=== PATIENT | male | born 1970 | race Caucasian/White ===

== ENCOUNTER 2018-01-24 07:47 | Emergency (ER) | payer SELFPAY ==
[~2018-01-24] VITALS: Ht 177.8 cm; Wt 95.3 kg
[2018-01-24] MEDS ORDERED: AMLODIPINE BESYLATE 10 MG TAB PO ONE (08:30)
[2018-01-24] MEDS ORDERED: LISINOPRIL 20 MG TAB PO ONE (08:30)
[2018-01-24 08:47] LABS: BASOPHILS # (AUTO) 0.1 (0.0-0.1); BASOPHILS % 1.1 % (0.0-1.0); EOSINOPHILS # (AUTO) 0.5 (0.0-0.4); EOSINOPHILS % 4.3 % (0.0-6.0); HEMATOCRIT 48.3 % (38.2-49.6); HEMOGLOBIN 16.7 g/dL (14.0-18.0); LYMPHOCYTES # (AUTO) 3.4 (1.0-3.2); LYMPHOCYTES % 31.1 % (18.0-39.1); MEAN CORPUSCULAR HEMOGLOBIN 31.3 pg (28-32); MEAN CORPUSCULAR HGB CONC 34.6 g/dL (31-35); MEAN CORPUSCULAR VOLUME 90.4 fL (81-99); MONOCYTES # (AUTO) 0.6 (0.2-0.8); MONOCYTES % 5.7 % (4.4-11.3); NEUTROPHILS # (AUTO) 6.2 (2.1-6.9); NEUTROPHILS % 57.4 % (38.7-80.0); PLATELET COUNT 301 x10e3/uL (140-360); RED BLOOD COUNT 5.34 x10e6/uL (4.3-5.7); RED CELL DISTRIBUTION WIDTH 13.1 % (11.7-14.4)
[2018-01-24 09:03] LABS: ALBUMIN 4.2 g/dL (3.5-5.0); ALBUMIN/GLOBULIN RATIO 1.2 (0.8-2.0); ANION GAP 15.4 mmol/L (8-16); CALCIUM 10.3 mg/dL (8.4-10.2); CREATININE, SERUM 1.33 mg/dL (0.72-1.25); POTASSIUM 4.4 mmol/L (3.5-5.1)
--- NOTE | 2018-01-24 09:05 | Diagnostic Imaging Report ---
EXAMINATION: Head CT HISTORY: Headaches, hypertension COMPARISON: None. TECHNIQUE: Multidetector axial images were obtained without contrast from the foramen magnum to the vertex . The images were reconstructed using brain and bone algorithms. Thin section brain images were reformatted into coronal and sagittal planes. Image quality: Motion/streaking artifact limits the evaluation of the skull base and posterior cranial fossa. Dose modulation, iterative reconstruction, and/or weight based adjustment of the mA/kV was utilized to reduce the radiation dose to as low as reasonably achievable. FINDINGS: Parenchyma: 1. No abnormal densities. 2. No mass or hemorrhage. No CT evidence of acute territorial vascular insult. Extra-axial spaces:No abnormal density. No extra-axial fluid collections Brain volume: Mild generalized brain volume loss. Ventricles: No hydrocephalus or displacement. Arteries: No density suggestive of thrombus. Dural sinuses: No abnormal density. Extra-axial spaces: No abnormal density. Foramen magnum: No mass, Chiari malformation, or basilar invagination. Sella: No obvious mass. Paranasal/mastoid sinuses: Imaged portions unremarkable. Skull/Scalp: No lytic or blastic lesions. No fractures. IMPRESSION: No intracranial abnormalities, particularly no hemorrhage. Signed by: Dr. Jessica Chambers M.D. on 01/24/2018 9:00 AM
[2018-01-24] MEDS ORDERED: SODIUM CHLORIDE 0.9% 1000ML 1,000 ML ONE (10:23)
[2018-01-24] MEDS ORDERED: SODIUM CHLORIDE 0.9% 1000ML 1,000 ML IV SCH (10:30)
[2018-01-24] MEDS ORDERED: HYDRALAZINE HCL 20 MG/ML VIAL IV ONE (12:30)
[2018-01-24 12:31] VITALS: BP 153/101
== END 2018-01-24 12:40 | disposition home or self-care (01) ==
LOC: ER 07:47
DX: R51 Headache (principal); I10 Essential (primary) hypertension; Z87.891 Personal history of nicotine dependence
CPT/HCPCS: 36415; 70450; 80053; 85025; 99284; J0360; J7030

== ENCOUNTER 2018-03-27 18:44 | Inpatient (IN) | payer SELFPAY ==
[~2018-03-27] VITALS: Ht 177.8 cm; Wt 109.0 kg
[2018-03-27] VITALS (14 sets, daily range): BP systolic 92–115; BP diastolic 61–86
--- OUTSIDE RECORDS SUMMARY | 2018-03-27 18:46 | XMS REPORT ---
Author Author [facility] Address Unknown Phone Unavailable Care Team Providers Care Sr. Media Manager Name Role Phone Desean GAO Unavailable Unavailable Problems This patient has no known problems. Allergies, Adverse Reactions, Alerts This patient has no known allergies or adverse reactions. Medications This patient has no known medications. Results Test Description Test Time Test Comments Text Results Atomic Results Result Comments CT BRAIN WO 2018-01-24 08:55:00 [facility] [address] [place], [place] [address] Patient Name: PRABHAKAR MOSQUERA II MR #: [id number] : 1970 Age/Sex: 48/M Req #: [id number] Adm Physician: Ordered by: MITZY HZU RELIEF OPERATOR Report #: [id number] Location: ER Room/Bed: Procedure: [id number] CT/CT BRAIN WO Exam Date: 01/24/18 Exam Time: 0830 REPORT STATUS: Signed EXAMINATION: Head CT HISTORY: Headaches, hypertension COMPARISON: None. TECHNIQUE: Multidetector axial images were obtained without contrast from the foramen magnum to the vertex . The images were reconstructed using brain and bone algorithms. Thin section brain images were reformatted into coronal and sagittal planes. Image quality: Motion/streaking artifact limits the evaluation of the skull base and posterior cranial fossa. Dose modulation, iterative reconstruction, and/or weight based adjustment of the mA/kV was utilized to reduce the radiation dose to as low as reasonably achievable. FINDINGS: Parenchyma: 1. No abnormal densities. 2. No mass or hemorrhage. No CT evidence of acute territorial vascular insult. Extra-axial spaces:No abnormal density. No ex tra-axial fluid collections Brain volume: Mild generalized brain volume loss. Ventricles: No hydrocephalus or displacement. Arteries: No density suggestive of thrombus. Dural sinuses: No abnormal density. Extra-axial spaces: No abnormal density. Foramen magnum: No mass, Chiari malformation, or basilar invagination. Sella: No obvious mass. Paranasal/mastoid sinuses: Imaged portions unremarkable. Skull/Scalp: No lytic or blastic lesions. No fractures. IMPRESSION: No intracranial abnormalities, particularly no hemorrhage. Signed by: Dr. Bright Chambers M.D. on 01/24/2018 9:00 AM Dictated By: BRIGHT CHAMBERS MD 9 Transcribed By: DAPHNEY on 01/24/18899 COPY TO: MITZY ZHU NP
--- OUTSIDE RECORDS SUMMARY | 2018-03-27 18:46 | XMS REPORT | Summary of Care ---
Author Author KARIN MILLIGAN M.D. Organization Unknown Address [facility] Phone Unavailable Care Team Providers Care Personal Development Mentor Name Role Phone KARIN MILLIGAN M.D. Unavailable Unavailable Unavailable Unavailable Functional Status Name Dates Details Functional status health issues are not documented Status: Name Dates Details Cognitive status health issues are not documented Status: Problems Name Dates Details Lumbar back sprain, initial encounter (847.2, S33.5XXA) Status: Active Medications Name Dates Details MethylPREDNISolone 4 MG Oral Tablet Therapy Pack USE DIRECTED Quantity: 1 CUPZHEN Gonzales, KARIN * Start : 11-Mar-2018 Active 21 Tablet Pack Sulindac 200 MG Oral Tablet TAKE ONE TABLET BY MOUTH TWICE DAILY AFTER A MEAL AFTER MEDROL * Quantity: 60 Refills: 3 CHEL Vidal., KARIN * Start : 11-Mar-2018 Active Cyclobenzaprine HCl - 10 MG Oral Tablet TAKE 1 TABLET AT BEDTIME NEEDED. * Quantity: 30 Refills: 3 CUPZHEN Mathews.D., KARIN * Start : 11-Mar-2018 Active Allergies and Adverse Reactions Name Dates Details Allergy history not documented Status: Procedures Procedure Dates Details Physical Therapy Date: 11-Mar-2018 MRI Spine lumbar wo contrast 55028 Date: 11-Mar-2018 Immunization Name Dates Details Immunizations not documented Social History Name Dates Details Unknown if ever smoked Vital Signs Date Test Result Details No Known Vitals to report Results Date Description Value Details Results not documented Plan of Care Name Dates Details Planned Observations Planned Goals not documented Planned Encounters Appointment; KARIN MILLIGAN M.D. On: 20-Apr-2018 9:15 Interventions Provided Medication Changes* Cyclobenzaprine HCl - 10 MG Oral Tablet - Start * MethylPREDNISolone 4 MG Oral Tablet Therapy Pack - Start * Sulindac 200 MG Oral Tablet - Start Labs/Procedures/Imaging* MRI Spine lumbar wo contrast 24420; To Be Done: 11 Mar 2018 * Physical Therapy; To Be Done: 11 Mar 2018 Instructions Name Dates Details Instructions not documented Encounters Appointment; KARIN MILLIGAN M.D. Encounter Diagnosis: Problem not documented On: 11-Mar-2018 10:00
[2018-03-27] MEDS ORDERED: ASPIRIN 81 MG CHEW TAB ONE (18:49)
[2018-03-27] MEDS ORDERED: MORPHINE SULFATE INJ 4 MG/ML INJ ONE (18:50)
[2018-03-27] MEDS ORDERED: ONDANSETRON HCL INJ 2 MG/ML VIAL ONE (18:50)
[2018-03-27] MEDS ORDERED: NITROGLYCERIN 2% OINT 1 GM PKT ONE ×2 (18:50→19:03)
[2018-03-27] MEDS: MORPHINE SULFATE INJ 4 MG/ML INJ IV PRN (18:52)
[2018-03-27] MEDS ORDERED: ONDANSETRON HCL INJ 2 MG/ML VIAL IV STA (18:56)
[2018-03-27] MEDS ORDERED: LABETALOL HCL 20 ML ONE (18:59)
[2018-03-27] MEDS ORDERED: METOPROLOL TARTRATE INJ 1 MG/ML VIAL ONE (19:01)
[2018-03-27] MEDS ORDERED: HYDROMORPHONE 1MG/1ML INJ IV STA (19:01)
[2018-03-27] MEDS ORDERED: SODIUM CHLORIDE 0.9% 1000ML 1,000 ML ONE ×2 (19:04→19:28)
[2018-03-27] MEDS ORDERED: HYDROMORPHONE 2MG/ML 2 MG/ML ML ONE (19:05)
[2018-03-27] MEDS ORDERED: SODIUM CHLORIDE 0.9% 1000ML 1,000 ML IV ONE (19:15)
[2018-03-27] MEDS ORDERED: METOPROLOL TARTRATE INJ 1 MG/ML VIAL IV ONE ×3 (19:15→19:30)
[2018-03-27] MEDS ORDERED: ASPIRIN 81 MG CHEW TAB PO ONE ×2 (19:15→19:30)
[2018-03-27] MEDS ORDERED: NITROGLYCERIN 2% OINT 1 GM PKT TOP ONE (19:15)
[2018-03-27] MEDS ORDERED: HYDROMORPHONE 2MG/ML 2 MG/ML ML IV STA (19:16)
[2018-03-27] MEDS ORDERED: LIDOCAINE HCL 2% LOCAL 20 ML VIAL ONE (19:26)
[2018-03-27] MEDS ORDERED: HEPARIN SOD (PORCINE) 1000 UNIT/ML 30ML ONE (19:26)
[2018-03-27] MEDS ORDERED: NITROGLYCERIN/D5W 200 MCG/ML 250 ML ONE (19:26)
[2018-03-27] MEDS ORDERED: BIVALRIUDIN 250 MG/VIAL VIAL IV ONE (19:27)
[2018-03-27] MEDS ORDERED: FENTANYL CITRATE/PF 100MCG/2 ML INJ ONE (19:27)
[2018-03-27] MEDS ORDERED: MIDAZOLAM HCL 2 MG/2 ML VIAL ONE (19:27)
[2018-03-27] MEDS ORDERED: SODIUM CHLORIDE 0.9% 50ML 0 ML ONE (19:28)
[2018-03-27] MEDS ORDERED: HEPARIN SOD/SOD CHLORIDE 2,000 ML ONE (19:28)
[2018-03-27] MEDS ORDERED: TICAGRELOR 90 MG TABLET PO ONE (19:30)
[2018-03-27] MEDS ORDERED: HYDROMORPHONE 2MG/ML 2 MG/ML ML IV ONE (19:30)
[2018-03-27] MEDS ORDERED: ATROPINE SULFATE 0.1 MG/ML 10ML SYR ONE (20:01)
[2018-03-27] MEDS ORDERED: IOPAMIDOL 370 MG/ML 200 ML INFUS..BTL INJ ONE (20:17)
[2018-03-27] MEDS ORDERED: EPTIFIBATIDE 20 ML ONE (20:19)
[2018-03-27] MEDS ORDERED: EPTIFIBATIDE 100 ML ONE (20:19)
[2018-03-27 20:38] LABS: BASOPHILS # (AUTO) 0.2 (0.0-0.1); BASOPHILS % 0.7 % (0.0-1.0); EOSINOPHILS # (AUTO) 0.4 (0.0-0.4); EOSINOPHILS % 1.9 % (0.0-6.0); HEMATOCRIT 46.2 % (38.2-49.6); HEMOGLOBIN 15.6 g/dL (14.0-18.0); LYMPHOCYTES # (AUTO) 6.5 (1.0-3.2); LYMPHOCYTES % 31.7 % (18.0-39.1); MEAN CORPUSCULAR HGB CONC 33.8 g/dL (31-35); MEAN CORPUSCULAR VOLUME 91.7 fL (81-99); MONOCYTES # (AUTO) 1.3 (0.2-0.8); MONOCYTES % 6.3 % (4.4-11.3); NEUTROPHILS % 58.8 % (38.7-80.0); PLATELET COUNT 410 x10e3/uL (140-360); RED BLOOD COUNT 5.04 x10e6/uL (4.3-5.7)
[2018-03-27 20:44] LABS: INR 0.8; PROTHROMBIN TIME 11.9 seconds (11.9-14.5)
[2018-03-27 20:50] LABS: ALANINE AMINOTRANSFERASE 30 IU/L (0-55); ALBUMIN 4.1 g/dL (3.5-5.0); ALBUMIN/GLOBULIN RATIO 1.2 (0.8-2.0); ALKALINE PHOSPHATASE 62 IU/L (40-150); ANION GAP 19.6 mmol/L (8-16); BLOOD UREA NITROGEN 12 mg/dL (7-26); BUN/CREATININE RATIO 10 (6-25); CARBON DIOXIDE 21 mmol/L (22-29); CHLORIDE 101 mmol/L (98-107); CREATINE KINASE 152 IU/L (30-200); CREATININE, SERUM 1.15 mg/dL (0.72-1.25); EST GLOMERULAR FILTRATION RATE > 60 ML/MIN (60-); GLUCOSE 122 mg/dL (74-118); POTASSIUM 3.6 mmol/L (3.5-5.1); SODIUM 138 mmol/L (136-145)
[2018-03-27 22:25] LABS: EOSINOPHILS % (MANUAL) 3 % (0-7); LYMPHOCYTES % (MANUAL) 22 % (19-48); MONOCYTES % (MANUAL) 6 % (3.4-9.0); NEUTROPHILS % (MANUAL) 68 % (40-74)
[2018-03-27 22:26] LABS: RBC MORPHOLOGY COMMENT NORMAL
[2018-03-27 22:27] LABS: PLATELET ESTIMATE ADEQUATE; PLATELET MORPHOLOGY COMMENT FEW LARGE
[2018-03-28] VITALS (66 sets, daily range): BP systolic 85–155; BP diastolic 43–108
--- NOTE | 2018-03-28 00:23 | Operative Report ---
DATE OF PROCEDURE: March 27, 2018 CARDIAC CATHETERIZATION REPORT INDICATION FOR PROCEDURE: ST-elevation [place]. PREPROCEDURE ASSESSMENT: Patient's medical records, laboratory findings, prior experiences with anesthesia, social history, and family history were reviewed prior to the procedure. Patient was deemed to be an appropriate candidate for moderate sedation. The risks, the benefits, and alternatives of the procedure were explained to the patient and informed consent was obtained prior to the procedure. MEDICATIONS: Administered. Please see nursing notes for medications administered during the procedure. PROCEDURES PERFORMED: 1. Coronary angiography. 2. Left heart catheterization. 3. Thrombectomy of right coronary artery. 4. PCI to RCA with drug-eluting stent x1. PROCEDURAL DETAILS: Patient was brought to the cardiac catheterization laboratory in an emergent fashion. Patient was prepped and draped in a sterile fashion. Access to the right common femoral artery was obtained using ultrasound guidance with micropuncture needle. Coronary angiography was performed using a JR4 guide catheter, 6-Turkish and JL4 diagnostic preformed catheter for the left coronary system. Following lesions were identified for intervention; 100% thrombotic occlusion of the proximal and mid RCA for PCI of the RCA. A 6-Turkish JR4 guide catheter was used, which provided adequate support. ProWater 0.014-inch wire was used to cross the lesion. A 2.5 x 12 mm compliant balloon was used to pre-dilate the lesion. Thrombectomy was performed using Pronto device. Stenting was performed using a 3.0 x 20 mm Synergy drug-eluting stent deployed at 16 atmospheres. This provided excellent angiographic results with no residual thrombus dissection or spasm. Case ended without any complications. Femoral angiography was performed and access site was deemed appropriate for vascular closure. Vascular closure was performed using a ProGlide vascular closure device. FINDINGS: 1. Left main coronary artery; no significant coronary artery disease, large caliber. 2. Left anterior descending artery, large vessel, tapers to a small vessel as it reaches the apex. 3. Large diagonal 1 mild plaquing without any obstructive CAD. 4. Left circumflex with 1 large OM branch. Mild plaquing without significant stenosis. 5. RCA, very large dominant RCA with large PL and PDA distally, initially 100% thrombotic occlusion, 0% residual stenosis with KEIKO 3 flow at the end of the case. RECOMMENDATIONS: 1. Admitted to ICU for post PCI care. Integrilin IV for next 18 hours. 2. Continue aspirin and ticagrelor 90 mg twice a day for at least 1 year, followed by aspirin 81 mg daily for life. 3. Continue optimal medical therapy and risk factor control. 4. Follow up in clinic 2 weeks after discharge from the hospital. Job#: [id number] CARYL
[2018-03-28] MEDS ORDERED: ACETAMINOPHEN 325 MG TAB PO PRN (01:00)
[2018-03-28] MEDS ORDERED: NITROGLYCERIN 0.4 MG SUBL SL PRN (01:00)
[2018-03-28] MEDS ORDERED: ATORVASTATIN 20 MG TAB PO ONE (01:00)
[2018-03-28] MEDS ORDERED: MORPHINE SULFATE INJ 4 MG/ML INJ IV PRN (01:00)
[2018-03-28] MEDS: MORPHINE SULFATE INJ 4 MG/ML INJ IV PRN (01:17)
[2018-03-28] MEDS ORDERED: ATORVASTATIN 40 MG TAB ONE (01:24)
[2018-03-28] MEDS: FAMOTIDINE 20 MG TAB PO SCH ×3 (01:24→21:05)
[2018-03-28] MEDS: EPTIFIBATIDE 100 ML IV SCH ×2 (02:45→10:00)
[2018-03-28 04:52] LABS: BASOPHILS # (AUTO) 0.1 (0.0-0.1); BASOPHILS % 0.5 % (0.0-1.0); EOSINOPHILS # (AUTO) 0.2 (0.0-0.4); EOSINOPHILS % 1.3 % (0.0-6.0); HEMATOCRIT 39.7 % (38.2-49.6); HEMOGLOBIN 13.1 g/dL (14.0-18.0); LYMPHOCYTES # (AUTO) 4.6 (1.0-3.2); LYMPHOCYTES % 27.1 % (18.0-39.1); MEAN CORPUSCULAR HEMOGLOBIN 30.7 pg (28-32); MONOCYTES % 5.9 % (4.4-11.3); NEUTROPHILS # (AUTO) 10.9 (2.1-6.9); NEUTROPHILS % 64.5 % (38.7-80.0); PLATELET COUNT 328 x10e3/uL (140-360); RED BLOOD COUNT 4.27 x10e6/uL (4.3-5.7); RED CELL DISTRIBUTION WIDTH 14.3 % (11.7-14.4)
[2018-03-28] MEDS ORDERED: ZESTORETIC 20-1 EACH PO (04:58)
[2018-03-28] MEDS ORDERED: AMLODIPINE BESYL5 MG PO (04:58)
[2018-03-28 05:37] LABS: ALBUMIN 3.5 g/dL (3.5-5.0); ALBUMIN/GLOBULIN RATIO 1.3 (0.8-2.0); ANION GAP 14.5 mmol/L (8-16); CALCIUM 9.6 mg/dL (8.4-10.2); CREATININE, SERUM 1.36 mg/dL (0.72-1.25); POTASSIUM 4.5 mmol/L (3.5-5.1)
[2018-03-28 05:47] LABS: CREATINE KINASE MB 142.6 ng/mL (0-5.0)
[2018-03-28 06:10] LABS: CHOL/HDL RATIO 5.3 (3.9-4.7)
--- NOTE | 2018-03-28 07:57 | History and Physical ---
PRIMARY CARE PHYSICIAN: None CHIEF COMPLAINT: Chest pain. HISTORY OF PRESENT ILLNESS: This is a 48-year-old man with a history of cigarette use about half a pack a day and hypertension, now developing substernal chest pain for the past 4 days. Now, yesterday pain becoming worse with radiation to his jaw and tingling down his left arm. Therefore, he came to the hospital and found to have ST-elevation and taken to the propagator laborer. Stent placed in the right coronary artery. He is now admitted to the ICU for continued Integrilin drip and management. PAST MEDICAL HISTORY: Hypertension, cigarette use. PAST SURGICAL HISTORY: Right knee in 1993. ALLERGIES: PER ELECTRONIC MEDICAL RECORD. FAMILY/SOCIAL HISTORY: Patient is single. Has 5 children. No alcohol or illicits. He smokes half a pack of cigarettes per day. He is unemployed. Previously worked in [employer]. MEDICATIONS: Per electronic medical record. REVIEW OF SYSTEMS: Denies any fever, chills, sweats, nausea, vomiting, diarrhea, headache, vision changes, dizziness, leg pain, back pain. PHYSICAL EXAMINATION VITAL SIGNS: Reviewed. GENERAL: A tired-appearing man resting in bed. HEENT: Anicteric. Pupils respond to light. No oral lesions. CARDIOVASCULAR: Normal S1 and S2. Slow heart rate. LUNGS: Moderate breath sounds. ABDOMEN: Soft, nontender and nondistended. : He has a right groin dressing in placed clean and dry. Right groin is soft and nontender. EXTREMITIES: No edema. SKIN: Dry. PSYCHIATRIC: Flat affect. NEUROLOGICAL: Alert and oriented times 3. Moving all extremities. LABS: Reviewed. MEDICATIONS: Reviewed. ASSESSMENT: This is a 48-year-old man with: 1. ST-elevation myocardial infarction. 2. Bradyarrhythmia. 3. Acute kidney injury. 4. Cigarette use. PLAN 1. Continue Integrilin drip. 2. Continue monitoring closely in the ICU. 3. Continue medication regimen of aspirin, statin. 4. Plan to add HEIDY inhibitor prior to discharge and possible beta jemma. 5. Continue Pepcid for GI prophylaxis. 6. Critical care time more than 35 minutes. Job#: [id number] RI
[2018-03-28] MEDS ORDERED: ASPIRIN 325 MG TAB PO SCH (09:00)
[2018-03-28] MEDS ORDERED: TICAGRELOR 90 MG TABLET PO SCH (09:00)
[2018-03-28] MEDS: DOCUSATE SODIUM 100 MG CAP PO SCH (11:47)
[2018-03-28 13:04] LABS: CREATINE KINASE MB 104.4 ng/mL (0-5.0)
--- NOTE | 2018-03-28 15:12 | Consultation ---
DATE OF CONSULTATION: March 28, 2018 CARDIOLOGY CONSULTATION HISTORY OF PRESENT ILLNESS: This is a 48-year-old man with tobacco abuse and hypertension who presented to the emergency department with worsening chest pain. The patient states that he had left-sided anterior chest discomfort, which he thought was originally gas related. However, his symptoms progressed and developed into left jaw squeezing discomfort and arm paresthesias. On arrival here, a 12-lead electrocardiogram showed inferior ST elevations and he underwent percutaneous coronary intervention of the right coronary artery. He is currently feeling well. He denies any ongoing symptoms. REVIEW OF SYSTEMS: A 12-point review of systems was conducted, and is negative other than stated above in the HPI. PAST MEDICAL HISTORY: Coronary artery disease, hypertension, tobacco use. PAST SURGICAL HISTORY: Orthopedic surgery in 1993, cardiac catheterization. SOCIAL HISTORY: No illicit drug use or alcohol use. A former tobacco smoker. ALLERGIES: PENICILLIN, EGGS, METHYLPHENIDATE. MEDICATIONS: See medication reconciliation form. PHYSICAL EXAMINATION VITAL SIGNS: Temperature 98.8, heart rate 56, respirations 16, blood pressure 112/68, oxygen saturation 98% on room air. GENERAL: He is a well-appearing, well-built man lying comfortably in bed. HEENT: Head is normocephalic, atraumatic. Eyes: Extraocular movements are intact. Conjunctivae clear. NECK: No JVD. No bruits. CARDIOVASCULAR: Regular rate and rhythm. Normal S1 and S2. No murmurs. LUNGS: Clear to auscultation. ABDOMEN: Soft, nontender, nondistended. Normal active bowel sounds. EXTREMITIES: No cyanosis, clubbing or edema. VASCULAR: 2+pulses. SKIN: Warm, dry, and intact. NEUROLOGIC: No focal deficits noted. Cranial nerves are grossly intact. PSYCHIATRIC: Normal mood and affect. LABORATORY DATA: All reviewed and notable for white blood cell count of 16.8, hemoglobin 13.1, creatinine 1.36, troponin I is 39, CK-MB 104, HDL low at 32, LDL 83. A 12-lead electrocardiogram showed normal sinus rhythm with inferior ST elevation. IMPRESSION AND RECOMMENDATIONS: 1. Inferior ST elevation myocardial infarction. The patient underwent successful percutaneous coronary intervention of the right coronary artery. Continue to do antiplatelet therapy, high-intensity statin, and will initiate beta jemma if heart rate increases. Will check a 2D echocardiogram to ensure normal left ventricular systolic function. 2. Hyperlipidemia. Continue statin. 3. Tobacco abuse. Cessation advised. 4. Hypertension. The patient's blood pressure is well controlled. Thank you for the consultation. Will follow along with you. Job#: [id number] RICHARD
[2018-03-28] MEDS ORDERED: ATORVASTATIN 40 MG TAB PO SCH (21:00)
[2018-03-28] MEDS ORDERED: ATORVASTATIN 20 MG TAB PO SCH (21:00)
[2018-03-28] MEDS: TICAGRELOR 90 MG TABLET PO SCH (21:05)
[2018-03-29 04:08] VITALS: BP 125/85
[2018-03-29 04:55] LABS: BASOPHILS # (AUTO) 0.1 (0.0-0.1); BASOPHILS % 0.5 % (0.0-1.0); EOSINOPHILS # (AUTO) 0.3 (0.0-0.4); EOSINOPHILS % 2.3 % (0.0-6.0); HEMATOCRIT 41.4 % (38.2-49.6); LYMPHOCYTES # (AUTO) 3.5 (1.0-3.2); LYMPHOCYTES % 23.5 % (18.0-39.1); MEAN CORPUSCULAR HEMOGLOBIN 31.3 pg (28-32); MEAN CORPUSCULAR HGB CONC 33.8 g/dL (31-35); MEAN CORPUSCULAR VOLUME 92.6 fL (81-99); MONOCYTES # (AUTO) 1.1 (0.2-0.8); MONOCYTES % 7.6 % (4.4-11.3); NEUTROPHILS # (AUTO) 9.7 (2.1-6.9); NEUTROPHILS % 65.6 % (38.7-80.0); PLATELET COUNT 293 x10e3/uL (140-360); RED BLOOD COUNT 4.47 x10e6/uL (4.3-5.7)
[2018-03-29 05:19] LABS: ALANINE AMINOTRANSFERASE 36 IU/L (0-55); ALBUMIN 3.4 g/dL (3.5-5.0); ALBUMIN/GLOBULIN RATIO 1.1 (0.8-2.0); ALKALINE PHOSPHATASE 58 IU/L (40-150); ANION GAP 11.1 mmol/L (8-16); BLOOD UREA NITROGEN 15 mg/dL (7-26); BUN/CREATININE RATIO 14 (6-25); CALCIUM 9.3 mg/dL (8.4-10.2); CARBON DIOXIDE 26 mmol/L (22-29); CHLORIDE 105 mmol/L (98-107); CREATININE, SERUM 1.09 mg/dL (0.72-1.25); EST GLOMERULAR FILTRATION RATE > 60 ML/MIN (60-); GLUCOSE 98 mg/dL (74-118); POTASSIUM 4.1 mmol/L (3.5-5.1); SODIUM 138 mmol/L (136-145)
[2018-03-29 08:00] VITALS: BP 138/91
[2018-03-29] MEDS: DOCUSATE SODIUM 100 MG CAP PO SCH (08:05)
[2018-03-29] MEDS: FAMOTIDINE 20 MG TAB PO SCH (08:05)
[2018-03-29] MEDS: TICAGRELOR 90 MG TABLET PO SCH (08:05)
[2018-03-29] MEDS ORDERED: Atorvastatin PO (08:08)
[2018-03-29] MEDS ORDERED: BRILINTA90 MG PO (08:08)
[2018-03-29] MEDS ORDERED: ASPIRIN EC81 MG PO (08:08)
[2018-03-29] MEDS ORDERED: COLACE100 M1 PO (08:08)
[2018-03-29] MEDS ORDERED: LISINOPRIL2.5 MG PO (08:08)
[2018-03-29] MEDS ORDERED: FAMOTIDINE20 MG PO (08:08)
[2018-03-29] MEDS ORDERED: ASPIRIN 325 MG TAB PO SCH (09:00)
[2018-03-29] MEDS ORDERED: LISINOPRIL 2.5 MG TAB PO SCH (09:00)
[2018-03-29] MEDS ORDERED: ASPIRIN 81 MG ENTERIC COATED PO SCH (09:00)
[2018-03-29] MEDS ORDERED: CLOPIDOGREL BISULFATE 75 MG TAB PO NR (10:00)
== END 2018-03-29 10:56 | disposition home or self-care (01) | DRG 247 ==
LOC: ER 18:44 → CATH LAB 19:26 → ICU 21:09
PROVIDERS: ADMIT Internal Medicine; ATTEND Internal Medicine
PROC: 027034Z Dilation of Coronary Artery, One Artery with Drug-eluting Intraluminal Device, Percutaneous Approach (ICD-10-PCS; principal; 2018-03-27)
PROC: 02C03ZZ Extirpation of Matter from Coronary Artery, One Artery, Percutaneous Approach (ICD-10-PCS; 2018-03-27)
PROC: 4A023N7 Measurement of Cardiac Sampling and Pressure, Left Heart, Percutaneous Approach (ICD-10-PCS; 2018-03-27)
PROC: B2011ZZ Plain Radiography of Multiple Coronary Arteries using Low Osmolar Contrast (ICD-10-PCS; 2018-03-27)
PROC: B2051ZZ Plain Radiography of Left Heart using Low Osmolar Contrast (ICD-10-PCS; 2018-03-27)
DX: I21.19 ST elevation (STEMI) myocardial infarction involving other coronary artery of inferior wall (principal); N17.9 Acute kidney failure, unspecified; I10 Essential (primary) hypertension; F17.210 Nicotine dependence, cigarettes, uncomplicated; I49.8 Other specified cardiac arrhythmias; E78.5 Hyperlipidemia, unspecified
CPT/HCPCS: 36415; 80053; 80061; 82550; 82553; 83036; 84484; 85025; 85610; 92928; 92973; 93005; 93306; 93458; 99284; C1769; C1874; J0583; J1327; J1644; J2001; J2250; J2270; J2405; J7030; Q9967

== ENCOUNTER 2018-07-19 19:07 | Observation (INO) | payer SELFPAY ==
[~2018-07-19] VITALS: Ht 177.8 cm; Wt 109.1 kg
[~2018-07-19 19:07] MED LIST: AMLODIPINE BESYL5 MG PO; ASPIRIN EC81 MG PO; Atorvastatin PO; BRILINTA90 MG PO; COLACE100 M1 PO; FAMOTIDINE20 MG PO; LISINOPRIL2.5 MG PO; ZESTORETIC 20-1 EACH PO
--- OUTSIDE RECORDS SUMMARY | 2018-07-19 19:10 | XMS REPORT | Summary of Care ---
Author Author CHEL Gonzales, KARIN Organization Unknown Address [facility] Phone Unavailable Care Team Providers Care Resource Development Director Name Role Phone CHEL Gonzales, KARIN Unavailable Unavailable CHEL JONES MT, KARIN Unavailable Unavailable Unavailable Unavailable Functional Status Name Dates Details Functional status health issues are not documented Status: Name Dates Details Cognitive status health issues are not documented Status: Problems Name Dates Details Lumbar back sprain, initial encounter (847.2, S33.5XXA) Status: Active Herniated nucleus pulposus of lumbosacral region (722.10, M51.27) Status: Active Contusion of ribs, left, subsequent encounter (V58.89, S20.212D) Status: Active Medications Name Dates Details methylPREDNISolone 4 MG Oral Tablet Therapy Pack USE DIRECTED Quantity: 1 CUPIC M.D., KARIN * Start : 11-Mar-2018 Active 21 Tablet Pack Sulindac 200 MG Oral Tablet TAKE ONE TABLET BY MOUTH TWICE DAILY AFTER A MEAL AFTER MEDROL * Quantity: 60 Refills: 3 CUPIC M.D., KARIN * Start : 11-Mar-2018 Active Cyclobenzaprine HCl - 10 MG Oral Tablet TAKE 1 TABLET AT BEDTIME NEEDED. * Quantity: 30 Refills: 3 CUPIC M.D., KARIN * Start : 11-Mar-2018 Active Etodolac 400 MG Oral Tablet TAKE 1 TABLET BY MOUTH TWICE A DAY NEEDED * Quantity: 60 Refills: 3 CUPIC M.D., KARIN * Start : 05-May-2018 Active Baclofen 20 MG Oral Tablet TAKE 1 TABLET BEDTIME * Quantity: 30 Refills: 4 CUPIC M.D., KARIN * Start : 05-May-2018 Active Cyclobenzaprine HCl - 10 MG Oral Tablet TAKE 1 TABLET BY MOUTH EVERY NIGHT AT BEDTIME * Quantity: 30 Refills: 4 CUPIC M.D., KARIN * Start : 28-Jun-2018 Active Sulindac 200 MG Oral Tablet TAKE 1 TABLET 2 TIMES DAILY AFTER MEALS * Quantity: 60 Refills: 4 CUPIC M.D., KARIN * Start : 28-Jun-2018 Active Allergies and Adverse Reactions Name Dates Details Allergy history not documented Status: Procedures Procedure Dates Details Procedures not documented Immunization Name Dates Details Immunizations not documented Social History Name Dates Details Unknown if ever smoked Vital Signs Date Test Result Details No Known Vitals to report Results Date Description Value Details Results not documented Plan of Care Name Dates Details Planned Observations Planned Goals not documented Planned Encounters Appointment; KARIN MILLIGAN M.D. On: 09-Aug-2018 10:45 Interventions Provided Medication Changes* Cyclobenzaprine HCl - 10 MG Oral Tablet - Start * Sulindac 200 MG Oral Tablet - Start Instructions Name Dates Details Instructions not documented Encounters Appointment; KARIN MILLIGAN M.D. Encounter Diagnosis: Problem not documented On: 11-Mar-2018 10:00 Appointment; KARIN MILLIGAN M.D. Encounter Diagnosis: Problem not documented On: 05-May-2018 11:30 Appointment; KARIN MILLIGAN M.D. Encounter Diagnosis: Problem not documented On: 14-Jun-2018 10:15 Appointment; KARIN MILLIGAN M.D. Encounter Diagnosis: Problem not documented On: 28-Jun-2018 13:30
[2018-07-19 21:07] LABS: HEMATOCRIT 44.8 % (38.2-49.6); HEMOGLOBIN 15.1 g/dL (14.0-18.0); MEAN CORPUSCULAR HEMOGLOBIN 30.4 pg (28-32); MEAN CORPUSCULAR HGB CONC 33.7 g/dL (31-35); MEAN CORPUSCULAR VOLUME 90.3 fL (81-99); PLATELET COUNT 312 x10e3/uL (140-360); RED BLOOD COUNT 4.96 x10e6/uL (4.3-5.7); RED CELL DISTRIBUTION WIDTH 13.4 % (11.7-14.4)
[2018-07-19 21:15] LABS: INR 0.85; PROTHROMBIN TIME 12.1 seconds (11.9-14.5)
[2018-07-19 21:16] LABS: PARTIAL THROMBOPLASTIN TIME 32.6 seconds (23.8-35.5)
[2018-07-19 21:23] LABS: ALANINE AMINOTRANSFERASE 19 IU/L (0-55); ALBUMIN 4.3 g/dL (3.5-5.0); ALBUMIN/GLOBULIN RATIO 1.2 (0.8-2.0); ALKALINE PHOSPHATASE 79 IU/L (40-150); BLOOD UREA NITROGEN 13 mg/dL (7-26); BUN/CREATININE RATIO 11 (6-25); CALCIUM 9.8 mg/dL (8.4-10.2); CARBON DIOXIDE 25 mmol/L (22-29); CHLORIDE 105 mmol/L (98-107); CREATINE KINASE 234 IU/L (30-200); CREATININE, SERUM 1.15 mg/dL (0.72-1.25); EST GLOMERULAR FILTRATION RATE > 60 ML/MIN (60-); GLUCOSE 94 mg/dL (74-118); SODIUM 141 mmol/L (136-145)
[2018-07-19 21:40] LABS: EOSINOPHILS % (MANUAL) 5 % (0-7); LYMPHOCYTES % (MANUAL) 27 % (19-48); MONOCYTES % (MANUAL) 4 % (3.4-9.0); NEUTROPHILS % (MANUAL) 62 % (40-74)
[2018-07-19 21:45] LABS: PLATELET ESTIMATE ADEQUATE; PLATELET MORPHOLOGY COMMENT FEW GIANT; RBC MORPHOLOGY COMMENT NORMAL
[2018-07-19] MEDS ORDERED: FAMOTIDINE 20 MG/2 ML VIAL IV ONE ×2 (22:00→22:04)
[2018-07-19] MEDS ORDERED: ACETAMINOPHEN 325 MG TAB PO ONE (22:00)
[2018-07-19] MEDS ORDERED: ASPIRIN 81 MG CHEW TAB PO ONE (22:00)
[2018-07-19] MEDS ORDERED: NITROGLYCERIN 2% OINT 1 GM PKT TOP ONE (22:00)
[2018-07-19] MEDS ORDERED: ONDANSETRON HCL INJ 2MG/ML 2ML 2 MG/ML VIAL IV PRN ×2 (22:00→22:30)
[2018-07-19] MEDS ORDERED: ASPIRIN 325 MG TAB ONE (22:04)
[2018-07-19] MEDS ORDERED: ENOXAPARIN SODIUM INJ 100 MG/ML SYR SC ONE (22:30)
[2018-07-19] MEDS ORDERED: FAMOTIDINE 20 MG/2 ML VIAL IV SCH (22:30)
[2018-07-19] MEDS ORDERED: HYDROMORPHONE 2MG/ML 2 MG/ML ML IV PRN (22:30)
--- NOTE | 2018-07-19 22:46 | Diagnostic Imaging Report ---
Examination: Single AP view of the chest. COMPARISON: None. INDICATION: Chest pain, high blood pressure IMPRESSION: 1. Lines and Tubes: None 2. Lungs are grossly clear. No consolidation or effusion. 3. Cardiomediastinal silhouette is normal. Pulmonary vasculature is normal. 4. No acute bony abnormalities. Signed by: Dr. Robert Ivey M.D. on 07/19/2018 10:43 PM
[2018-07-20] VITALS (7 sets, daily range): BP systolic 121–156; BP diastolic 70–93
[2018-07-20] MEDS: NITROGLYCERIN 2% OINT 1 GM PKT TOP SCH ×4 (00:14→18:00)
--- NOTE | 2018-07-20 04:00 | NUR ---
RECEIVED PATIENT PER STRETCHER, NO COMPLAINTS VOICED, NO COMPLAINTS OF PAIN, POSITIONED IN BED, TELEMETRY ON, CALL LIGHT IN REACH. WILL CONTINUE TO MONITOR.
--- NOTE | 2018-07-20 06:14 | NUR ---
PRIMARY CARE PHYSICIAN: None CHIEF COMPLAINT: Chest pain. HISTORY OF PRESENT ILLNESS: This is a 48-year-old man, with hx STEMI in 04/2018 s/p stent, now with chest discomfort substernally, sharp. Now resolved; no sob/dizziness/nausea. quit cigs 04/2018. PAST MEDICAL HISTORY: Hypertension, cigarette use, MARVIN, STEMI 04/2018 s/p stent, Bradyarrhythmia, HLD PAST SURGICAL HISTORY: Right knee in 1993. ALLERGIES: PER ELECTRONIC MEDICAL RECORD. FAMILY/SOCIAL HISTORY: Patient is single. Has 5 children. No alcohol or illicits. He smokes half a pack of cigarettes per day. He is unemployed. Previously worked in [employer] MEDICATIONS: Per electronic medical record. REVIEW OF SYSTEMS: Denies any fever, chills, sweats, nausea, vomiting, diarrhea, headache, vision changes, dizziness, leg pain, back pain. PHYSICAL EXAMINATION VITAL SIGNS: Reviewed. GENERAL: A tired-appearing man resting in bed. HEENT: Anicteric. Pupils respond to light. No oral lesions. CARDIOVASCULAR: Normal S1 and S2. LUNGS: Moderate breath sounds. ABDOMEN: Soft, nontender and nondistended. EXTREMITIES: No edema. SKIN: Dry. PSYCHIATRIC: Flat affect. NEUROLOGICAL: Alert and oriented times 3. Moving all extremities. LABS: Reviewed. MEDICATIONS: Reviewed. ASSESSMENT: This is a 48-year-old man with: Angina CAD with hx Stent Former smoker HTn HLD Obesity PLAN Serial enzymes; cardio eval Lipid panel/hba1c BB/asa/aceI/statin Lovenox/pecid Rusty Renee MD, PhD
--- NOTE | 2018-07-20 07:00 | NUR ---
ROUNDS DONE, PATIENT RESTING IN BED, NO COMPLAINTS OF CHEST PAINS. CALL LIGHT REMAIN IN REACH.
--- NOTE | 2018-07-20 07:17 | NUR ---
patient resting in bed, Alert with no distress, bed in lowest position with alarm ON, call light in reach, denies any chest pain, keep monitoring
[2018-07-20 07:21] LABS: CHOL/HDL RATIO 3.8 (3.9-4.7)
[2018-07-20] MEDS: LISINOPRIL 10 MG TAB PO SCH (08:38)
[2018-07-20] MEDS: FAMOTIDINE 20 MG TAB PO SCH ×2 (08:38→16:45)
[2018-07-20] MEDS ORDERED: ASPIRIN 325 MG TAB EC PO SCH (09:00)
[2018-07-20] MEDS ORDERED: ASPIRIN 81 MG ENTERIC COATED PO SCH (09:00)
[2018-07-20] MEDS ORDERED: METOPROLOL TARTRATE 25 MG TAB PO SCH ×2 (09:00)
[2018-07-20] MEDS ORDERED: LISINOPRIL 2.5 MG TAB PO SCH (09:00)
[2018-07-20] MEDS ORDERED: TICAGRELOR 90 MG TABLET PO SCH (09:00)
--- NOTE | 2018-07-20 13:38 | NUR ---
SOCIAL WORK INITIAL ASSESSMENT Social Media Community Manager to bedside to discuss plan of care with patient/family. CM/SW role and care transitions discussed. Anticipated discharge plan discussed along with duration of care. CM/SW discussed patients right to make decisions in care. CM/SW work hours given. Patient lives: IN TRAVEL TRAILER BY SELF Admit/Transfer: [facility] POA/Emergency contact: SISTER SIMON NGUYỄN [phone] Current/Previous Home Health: NONE PCP/Follow-up Care: NONE Current/Previous DME: NONE Other Services: NONE Employment Status: EQUIP ANIMATION ARTIST WITH [employer] Areas of Concerns: NO BENEFITS Referral Needs: GAVE PACKET OF INFORMATION WITH COMMUNITY RESOURCES FOR ASSISTANCE WITH LOW TO NO INCOME TO PATIENT. RESOURCES THAT PATIENT MAY BE ABLE TO FOLLOW UP UPON DISCHARGE. PT EDUCATED ON EACH RESOURCE AND UNDERSTANDING HOW TO FOLLOW UP TO SEE IF QUALIFIED FOR EACH RESOURCE. Education Needs: NONE IMM/KATHLEEN given and signed (if applicable): NA Goal for discharge: RETURN HOME INDEPENDENTLY CM/SW left business card at the bedside with contact information. Name and number was also written on the patients whiteboard. Patient verbalized understanding of discussion. CM will follow-up with ongoing discharge and transition of care needs.
[2018-07-20] MEDS ORDERED: CLOPIDOGREL BISULFATE 75 MG TAB PO ONE (14:15)
[2018-07-20 16:02] LABS: CREATINE KINASE MB 1.6 ng/mL (0-5.0)
[2018-07-20] MEDS: CARVEDILOL 12.5 MG TAB PO SCH (16:40)
[2018-07-20] MEDS ORDERED: ENOXAPARIN SOD INJ 40 MG/0.4 ML SYR SC SCH (17:00)
--- NOTE | 2018-07-20 20:00 | NUR ---
pt received. pt assessed. no ss of distress noted. no co pain at time. tele in place. will cont to follow poc. call herrera within reach.
[2018-07-20] MEDS ORDERED: NON-FORMULARY MEDICATION ([Atorvastatin] 80 MG) PO SCH (21:00)
[2018-07-20] MEDS ORDERED: SIMVASTATIN 40 MG TAB PO SCH (21:00)
[2018-07-20] MEDS ORDERED: ATORVASTATIN 40 MG TAB PO SCH (21:00)
--- NOTE | 2018-07-20 21:20 | Consultation ---
DATE OF CONSULTATION: 07/20/2018 Cardiology consultation REQUESTING PHYSICIAN: Rusty Renee MD REASON FOR CONSULTATION: Hypertension and chest pain. HISTORY OF PRESENT ILLNESS: This is a 48-year-old male with history of coronary artery disease status post recent ST-elevation myocardial infarction and high blood pressure, who presents with complaints of chest pain and high blood pressure. The patient reports he has been having elevated blood pressure for the last 2 months and developed chest pain in May. He states this chest pain is different from his prior myocardial infarction. He describes it as left-sided sharp pain, 3/10 in severity, lasting 15 to 20 minutes at a time. There is no shortness of breath, nausea, diaphoresis or radiation. The pain occurs once every 2 weeks and usually occurs at rest. He has not noticed any association with activity, and in fact, states he was able to walk 6 miles the other day without symptoms. He denies any edema, orthopnea, PND, or palpitations. He is compliant with anti-platelet therapy. However, he endorses he could not afford Brilinta and was actually using a friend's prasugrel instead. REVIEW OF SYSTEMS: Negative except as per HPI. PAST MEDICAL HISTORY: 1. Hypertension. 2. Coronary artery disease, status post ST-elevation myocardial infarction in 2018, status post RCA, PCI. 3. Hyperlipidemia. PAST SURGICAL HISTORY: Right knee surgery. ALLERGIES: PLEASE SEE EMR. MEDICATIONS: Please see medication list. SOCIAL HISTORY: No alcohol or illicit drugs. He previously smoked tobacco. FAMILY HISTORY: Noncontributory to current illness. PHYSICAL EXAMINATION: VITAL SIGNS: Temperature 98.8 degrees, pulse 51, respiratory rate 17, blood pressure 152/80, oxygen saturation 96% on room air. GENERAL: Obese gentleman, in no acute distress. Awake and alert. HEENT: Normocephalic, atraumatic. Pupils equal. No scleral icterus. NECK: Supple. No thyromegaly or cervical lymphadenopathy. No carotid bruit. LUNGS: Clear to auscultation bilaterally. No wheezes or crackles. CARDIOVASCULAR: Normal rate, regular rhythm. No murmur. Normal S1, S2. ABDOMEN: Soft, nontender. EXTREMITIES: No edema. NEUROLOGIC: Nonfocal exam. LAB STUDIES: WBC 12.41, hemoglobin 15.1, hematocrit 44.8, platelets 312. Sodium 141, potassium 4, chloride 105, CO2 of 25, BUN 13, creatinine 1.15, triglycerides 281, cholesterol 107, LDL 23, HDL 28. Troponin 0.005. EKG, sinus bradycardia with sinus arrhythmia, incomplete right bundle-branch block. Cannot rule out anterior infarct, age undetermined. IMPRESSION: 1. Chest pain. 2. Hypertension, uncontrolled 3. Coronary artery disease status post recent stent 4. Hyperlipidemia RECOMMENDATIONS: We will stop prasugrel and place the patient on Plavix as this is more affordable. In addition, we will adjust his antihypertensive therapy, increase lisinopril, add carvedilol. The patient's cardiac catheterization was reviewed from 2018. No further cardiac evaluation is indicated at this time, as he has ruled out for myocardial infarction. The patient can be discharged home from a cardiac standpoint once blood pressure is controlled. Thank you for this consult. We will continue to follow. MD JORJE Hughes/JOSE MARIA /[id number] MTDD
[2018-07-21] VITALS: BP 120/74
[2018-07-21 04:00] VITALS: BP 104/47
--- NOTE | 2018-07-21 04:28 | NUR ---
pt sleeping. no ss of distress noted. call herrera within reach.
[2018-07-21] MEDS: NITROGLYCERIN 2% OINT 1 GM PKT TOP SCH ×2 (06:13)
[2018-07-21 07:50] VITALS: BP 118/65
[2018-07-21] MEDS: CARVEDILOL 12.5 MG TAB PO SCH (08:44)
[2018-07-21] MEDS: FAMOTIDINE 20 MG TAB PO SCH (08:44)
[2018-07-21] MEDS: LISINOPRIL 10 MG TAB PO SCH (08:44)
[2018-07-21 08:47] VITALS: BP 118/65
[2018-07-21] MEDS ORDERED: ASPIRIN 81 MG ENTERIC COATED PO SCH (09:00)
[2018-07-21] MEDS ORDERED: CLOPIDOGREL BISULFATE 75 MG TAB PO SCH (09:00)
[2018-07-21] MEDS ORDERED: PLAVIX75 MG PO (09:23)
[2018-07-21] MEDS ORDERED: COREG12.5 MG PO (09:23)
--- NOTE | 2018-07-21 09:25 | NUR ---
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
--- NOTE | 2018-07-21 09:25 | NUR ---
ADDENDUM to d/c summary: condition: stable
[2018-07-21 12:00] VITALS: BP 125/79
--- NOTE | 2018-07-21 12:20 | NUR ---
patient discharged home, No ss of distress noted, IV canula removed with tip intact, no ss of infiltration noted, Prescription given, patient aware about f/up appointments, tele box returned, escorted him to walk to front lobby . denies any chest pain or SOB. Dr Bella had rounds
--- NOTE | 2018-07-21 16:23 | Progress Note ---
DATE: 07/21/2018 Cardiology Progress Note SUBJECTIVE: The patient denies chest pain or shortness of breath. He reports he feels well. OBJECTIVE: VITAL SIGNS: Temperature 97.1 degrees, pulse 60, respiratory rate 17, blood pressure 118/65, oxygen saturation 97% on room air. GENERAL: Awake, alert, in no acute distress. LUNGS: Clear to auscultation bilaterally. No wheezes or crackles. CARDIOVASCULAR: Normal rate, regular rhythm. No murmur. Normal S1, S2. ABDOMEN: Soft, nontender. EXTREMITIES: No edema. CARDIAC MEDICATIONS: Plavix 75 mg p.o. daily, carvedilol 12.5 mg p.o. b.i.d., aspirin 81 mg p.o. daily, Lexapro 10 mg p.o. daily, atorvastatin 80 mg p.o. q.h.s. LABORATORY DATA: None today. TELEMETRY: Sinus bradycardia. IMPRESSION: 1. Chest pain. 2. Hypertension, uncontrolled. 3. Coronary artery disease with recent ST elevation myocardial infarction in 2018, status post right coronary artery percutaneous coronary intervention. 4. Hyperlipidemia. RECOMMENDATIONS: The patient's blood pressure is improved on lisinopril and carvedilol. Prasugrel has been stopped. The patient was started on Plavix due to financial limitations. The need for medication adherence was explained to the patient and the patient expressed understanding. The patient's cardiac catheterization was reviewed from 2018. No further cardiac evaluation is indicated at this time as he has ruled out for myocardial infarction. Thank you for this consult. We will continue to follow. Nayeli Bella MD ABS/MODL /[id number]
== END 2018-07-21 12:21 | disposition home or self-care (01) ==
LOC: ER 19:07 → ERHOLD 22:39 → IMCU 07-20 03:56
PROVIDERS: ADMIT Internal Medicine; ATTEND Internal Medicine
DX: R07.9 Chest pain, unspecified (principal); I10 Essential (primary) hypertension; R94.31 Abnormal electrocardiogram [ECG] [EKG]; Z88.0 Allergy status to penicillin; Z88.8 Allergy status to other drugs, medicaments and biological substances; Z91.012 Allergy to eggs; I25.10 Atherosclerotic heart disease of native coronary artery without angina pectoris; Z95.5 Presence of coronary angioplasty implant and graft; I25.2 Old myocardial infarction; E78.5 Hyperlipidemia, unspecified; Z87.891 Personal history of nicotine dependence; E66.9 Obesity, unspecified; Z68.34 Body mass index [BMI] 34.0-34.9, adult
CPT/HCPCS: 36415 ×2; 71045; 80053; 80061; 82550 ×2; 82553 ×2; 83880; 84484 ×2; 85007; 85027; 85610; 85730; 93005; 93306; 99284; G0378 ×3; J1650 ×2

== ENCOUNTER 2019-12-08 20:08 | Emergency (ER) | payer SELFPAY ==
[~2019-12-08] VITALS: Ht 177.8 cm; Wt 108.9 kg
[~2019-12-08 20:08] MED LIST changes: +COREG12.5 MG PO; +PLAVIX75 MG PO
[2019-12-08] MEDS ORDERED: FAMOTIDINE 20 MG/2 ML VIAL IV ONE (20:18)
[2019-12-08] MEDS ORDERED: DIPHENHYDRAMINE HCL INJ 50 MG/ML VIAL ONE (20:18)
[2019-12-08] MEDS ORDERED: METHYLPREDNISOLONE SOD SUCC 125 MG/2ML VIAL ONE (20:18)
[2019-12-08] MEDS ORDERED: FAMOTIDINE 20 MG/2 ML VIAL IV STA (20:20)
[2019-12-08] MEDS ORDERED: METHYLPREDNISOLONE SOD SUCC 125 MG/2ML VIAL IV ONE (20:20)
[2019-12-08] MEDS ORDERED: DIPHENHYDRAMINE HCL INJ 50 MG/ML VIAL IV ONE (20:20)
--- NOTE | 2019-12-08 20:41 | Emergency Department Note ---
History of Present Illnes History of Present Illness Chief Complaint: Skin Rash or Abscess History of Present Illness This is a 49 year old male PREESENTS TO ED WITH REPORT OF BEE STING X6 TO RIGHT ANKLE PEDIATRICS HOSPITALIST TO ED AND SOB; PT REPORTS "HIGHLY ALLERGIC" TO BEES; TOOK 590 MG BENADRYL PEDIATRICS HOSPITALIST, DENIES SOB . Historian: Patient Arrival Mode: Car Onset (how long ago): minute(s) (30) Location: RIGHT ANKLE Quality: BEE STING Radiation: Reports non-radiation Severity: mild Onset quality: sudden Duration (how long): hour(s) (30 MINUTES) Timing of current episode: constant Progression: improving Chronicity: new Context: Reports other (BEE STINGS); Denies recent illness Relieving factors: none Exacerbating factors: none Treatments prior to arrival: other (BENADRYL 50 MG PO ) Past Medical/Family History Physician Review I have reviewed the patient's past medical and family history. Any updates have been documented here. Past Medical History Recent Fever: No Clinical Suspicion of Infectio: No New/Unexplained Change in Ment: No Past Medical History: Hypertension, [place], Migraines, GERD Past Surgical History: PCI Other Surgery: RT KNEE SURGERY Social History Smoking Cessation: Current every day smoker Alcohol Use: None Any Illegal Drug Use: No Family History Family history of heart diseas: Yes Other family history HTN,CAD Other Last Tetanus: UTD Review of Systems Review of Systems Constitutional: Reports as per HPI EENTM: Reports no symptoms Cardiovascular: Reports no symptoms Respiratory: Reports no symptoms Gastrointestinal: Reports no symptoms Genitourinary: Reports no symptoms Musculoskeletal: Reports no symptoms Integumentary: Reports no symptoms Neurological: Reports no symptoms Psychological: Reports no symptoms Endocrine: Reports no symptoms Hematological/Lymphatic: Reports no symptoms Physical Exam Related Data Allergies: Coded Allergies: bee venom protein (honey bee) (Verified Allergy, Severe, 12/08/19) egg (Verified Allergy, Severe, Anaphylaxis, Throat swelling, 03/27/18) Penicillins (Verified Allergy, Unknown, 01/24/18) methylphenidate HCl (Verified Allergy, Unknown, 01/24/18) Triage Vital Signs Vital Signs Date Time Temp Pulse Resp B/P (MAP) Pulse Ox O2 Delivery O2 Flow Rate FiO2 12/08/19 20:19 99.4 85 16 211/118 98 Room Air Vital signs reviewed: Yes Physical Exam CONSTITUTIONAL Constitutional: Present well-developed, Present well-nourished; Absent distressed HENT HENT: Present normocephalic, Present atraumatic, Present oropharynx clear/moist, Present nose normal HENT L/R: Present left ext ear normal, Present right ext ear normal EYES Eyes: Reports PERRL, Reports conjunctivae normal NECK Neck: Present ROM normal PULMONARY Pulmonary: Present effort normal, Present breath sounds normal CARDIOVASCULAR Cardiovascular: Present regular rhythm, Present heart sounds normal, Present capillary refill normal, Present normal rate GASTROINTESTINAL Abdominal: Present soft, Present nontender, Present bowel sounds normal GENITOURINARY Genitourinary: Present exam deferred SKIN Skin: Present warm, Present dry, Present other (MULITPLE INSECT STINGS TO RIGHT ANKLE) MUSCULOSKELETAL Musculoskeletal: Present ROM normal NEUROLOGICAL Neurological: Present alert, Present oriented x 3, Present no gross motor or sensory deficits PSYCHOLOGICAL Psychological: Present mood/affect normal, Present judgement normal Assessment & Plan Medical Decision Making MDM PT WITH MULTIPLE BEE STINGS TO RIGHT ANKLE, PT STATES HIGHLY ALLERGIC TO BEES PT IN NO DISTRESS, NO ANGIOEDEMA, NO RASH, SOLUMEDROL 125 MG IV ORDERED BENADRYL 25 MG IV ORDERED PEPCID 20 MG PO ORDERED PT DISCHARGED WITH MEDROL DOSE PACK DIRECTED #1 [id number] BP 163/104 Reassessment Reassessment time: 21:35 Reassessment PT DOING WELL, STILL NO RASH, NO SOB, BREATH SOUNDS CLEAR, BLOOD PRESSURE IS STILL 183/11 CLONIDINE 0.1 MG PO ORDERED Assessment & Plan Final Impression: (1) Allergy to bee sting (2) HTN (hypertension) Depart Disposition: HOME, SELF-CARE Last Vital Signs Date Time Temp Pulse Resp B/P (MAP) Pulse Ox O2 Delivery O2 Flow Rate FiO2 12/08/19 20:19 99.4 85 16 211/118 98 Room Air Home Meds Active Scripts Clopidogrel Bisulfate* (PLAVIX) 75 Mg Tablet, 75 MG PO DAILY for 30 Days Prov:LILLY NAVA MD 07/21/18 Carvedilol (COREG) 12.5 Mg Tab, 12.5 MG PO BID for 30 Days, TAB Prov:LILLY NAVA MD 07/21/18 Lisinopril (LISINOPRIL) 2.5 Mg Tablet, 2.5 MG PO DAILY for 30 Days Prov:LILLY NAVA MD 03/29/18 Famotidine (FAMOTIDINE) 20 Mg Tab, 20 MG PO Q12H for 30 Days, TAB Prov:LILLY NAVA MD 03/29/18 [Atorvastatin] 40 MG TAB No Conflict Check, 80 MG PO HS for 30 Days Prov:LILLY NAVA MD 03/29/18 Aspirin (ASPIRIN EC) 81 Mg Tablet.dr, 81 MG PO DAILY for 30 Days Prov:LILLY NAVA MD 03/29/18 Reported Medications Amlodipine Besylate (AMLODIPINE BESYLATE) 5 Mg Tablet, 10 MG PO DAILY, #30 TAB 03/28/18 Medications in the ED Methylprednisolone Sodium Succinate 125 mg STK-MED ONCE .ROUTE ; Start 12/08/19 at 20:18; Stop 12/08/19 at 20:12; Status DC Diphenhydramine HCl 50 mg STK-MED ONCE .ROUTE ; Start 12/08/19 at 20:18; Stop 12/08/19 at 20:12; Status DC Famotidine 20 mg STK-MED ONCE IV ; Start 12/08/19 at 20:18; Stop 12/08/19 at 20:13; Status DC CARLIN BROWN MD Dec 08, 2019 20:41
--- OUTSIDE RECORDS SUMMARY | 2019-12-08 21:41 | XMS REPORT | Continuity of Care Document ---
Author Author [facility] t Organization [facility] Address [address] [place] [address] Phone Unavailable Care Team Providers Care Director Of Digital Platforms Name Role Phone NO, PCP PCP Unavailable KARIN MILLIGAN M.D. Attphys Unavailable RUSTY NAVA Attphys Unavailable Desean GAO Attphys Unavailable RUSTY NAVA Admphys Unavailable Problems Condition Name Condition Details Condition Category Status Onset Date Resolution Date Last Treatment Date Treating Clinician Comments Source Lumbar back sprain, initial encounter Lumbar back sprain, in itial encounter Problem Active [facility] Herniated nucleus pulposus of lumbosacral region Herni ated nucleus pulposus of lumbosacral region [facility] Contusion of ribs, left, subsequent encounter Contusio n of ribs, left, subsequent encounter Problem [facility] elevation myocardial infarction involving right cor onary artery ST elevation (STEMI) myocardial infarction involving right coronary artery Problem Ac tive [facility] Uncontrolled hypertension Hypertension, uncontrolled Problem Active [facility] Unstable angina pectoris Unstable angina pectoris Problem Active [facility] 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 Ordering Clinician Indication Dosage Frequency Signature (SIG) Comments Components Source tiZANidine HCl - 4 MG Oral Tablet tiZANidine HCl - 4 MG Oral Tablet 2019-06-22 00:00:00 Yes KARIN CUPIC M.D. Q0.3333D JAZIEL E 1 TABLET 3 TIMES DAILY NEEDED. [facility] Naproxen 500 MG Oral Tablet Naproxen 500 MG Oral Tablet 2019-06-22 00:00:00 Yes KARIN CUPIC M.D. TAKE ONE TABLET BY MOUTH TWICE A DAY AFTER MEALS [facility] Nabumetone 750 MG Oral Tablet Nabumetone 750 MG Oral Tablet 2018 00:00:00 Yes KARIN CUPIC M.D. TAKE 1 TABLET BY MOUTH TWICE DAILY AFTER A MEAL [facility] Methocarbamol 750 MG Oral Tablet Methocarbamol 750 MG Oral T ablet 2019-02-13 00:00:00 Yes KARIN CUPIC M.D. TAKE 1 TABLET BY MOUTH THREE TIMES DAILY [facility] Etodolac 400 MG Oral Tablet Etodolac 400 MG Oral Tablet 2018-10-27 00:00:00 Yes KARIN CUPIC M.D. Q0.5D TAKE 1 TABLET TWICE DAILY WITH MEALS. [facility] Baclofen 20 MG Oral Tablet Baclofen 20 MG Oral Tablet 2018-10-27 00:0 0:00 Yes KARIN CUPIC M.D. TAKE ONE TABLET BY MOUTH TWICE DA HOLDEN AFTER A MEAL [facility] Carvedilol (Coreg) 12.5 Mg Tab Carvedilol (Coreg) 12.5 Mg Ta b 2018-07-21 00:00:00 Yes Rusty Nava Md 12.5 Twice A Day [facility] Clopidogrel Bisulfate (Plavix) 75 Mg Tablet Clopidogre l Bisulfate (Plavix) 75 Mg Tablet 2018-07-21 00:00:00 Yes Rusty Nava Md 75 Daily [facility] Cyclobenzaprine HCl - 10 MG Oral Tablet Cyclobenzaprine HCl - 10 MG Oral Tablet 2018-06-28 00:00:00 Yes KARIN CUPIC M.D. TAKE 1 TABLET BY MOUTH EVERY NIGHT AT BEDTIME [facility] Sulindac 200 MG Oral Tablet Sulindac 200 MG Oral Tablet 2018-06-28 00:00:00 Yes KARIN CUPZHEN M.D. Q0.5D TAKE 1 TABLET 2 TIMES DAILY AFT ER MEALS [facility] Etodolac 400 MG Oral Tablet Etodolac 400 MG Oral Tablet 2018-05-05 00:00:00 Yes KARIN MILLIGAN M.D. TAKE 1 TABLET BY MOUTH TWICE A DAY NEEDED [facility] Baclofen 20 MG Oral Tablet Baclofen 20 MG Oral Tablet 2018-05-05 00:0 0:00 Yes KARIN MILLIGAN M.D. 1 TAKE 1 TABLET BEDTIME [facility] Aspirin (Aspirin Ec) 81 Mg Tablet. Aspirin (Aspirin Ec) 81 Mg Tablet. 2018-03-29 00:00:00 Yes Rusty Nava Md 81 Daily [facility] Atorvastatin 40 Mg Tab Atorvastatin 40 Mg Tab 2018-03-29 00:00:00 Yes Rusty Nava Md 80 Bedtime [facility] Famotidine 20 Mg Tab Famotidine 20 Mg Tab 2018-03-29 00:00:00 Yes Rusty Nava Md 20 Every 12 Hours [facility] Lisinopril 2.5 Mg Tablet Lisinopril 2.5 Mg Tablet 2018-03-29 00:00:00 Yes Rusty Nava Md 2.5 Daily [facility] Ticagrelor (Brilinta) 90 Mg Tablet, 90 Mg Oral Ticagre arsenio (Brilinta) 90 Mg Tablet, 90 Mg Oral 2018-03-29 00:00:00 2018-07-21 00:00:00 No Rusty obrien Md 90 Every 12 Hours [facility] methylPREDNISolone 4 MG Oral Tablet Therapy Pack methy lPREDNISolone 4 MG Oral Tablet Therapy Pack 2018-03-11 00:00:00 Yes KARIN MILLIGAN M.D. USE DIRECTED [facility] Sulindac 200 MG Oral Tablet Sulindac 200 MG Oral Tablet 2018-03-11 00:00:00 Yes KARIN MILLIGAN M.D. TAKE ONE TA BLET BY MOUTH TWICE DAILY AFTER A MEAL AFTER MEDROL [facility] Cyclobenzaprine HCl - 10 MG Oral Tablet Cyclobenzaprine HCl - 10 MG Oral Tablet 2018-03-11 00:00:00 Yes KARIN MILLIGAN M.D. TAKE 1 TABLET AT BEDTIME NEEDED. [facility] Amlodipine Besylate 5 Mg Tablet Amlodipine Besylate 5 Mg Tablet Yes 10 Daily [facility] Lisinopril/Hydrochlorothiazide (Zestoret ic 20-12.5 Mg Tablet) 1 Each Tablet, 1 Oral Lisinopril/Hydrochlorothiazide (Zestoret ic 20-12.5 Mg Tablet) 1 Each Tablet, 1 Oral 2018-03-29 00:00:00 No 1 Daily [facility] Procedures Procedure Date / Time Performed Performing Clinician Sour e XRAY Spine lumbar discogram [id number] 2019-06-22 00:00:[address] [facility] CT Spine lumbar w contrast [id number] 2019-06-22 00:00:00 [facility] DILATION OF 1 COR ART WITH DRUG-ELUT INTRA, PERC APPROACH 20 20-03-25 00:00:00 [facility] EXTIRPATION OF MATTER FROM 1 COR ART, PERC APPROACH 00:00:00 [facility] MEASURE OF CARDIAC SAMPL & PRESSURE, L HEART, PERC APPROACH 2018-03-27 00:00:00 [facility] PLAIN RADIOGRAPHY OF MULT COR ART USING L OSM CONTRAST 03-27 00:00:00 [facility] PLAIN RADIOGRAPHY OF LEFT HEART USING LOW OSMOLAR CONTRAST 2 00:00:00 [facility] Physical Therapy 2018-03-11 00:00:00 [facility] MRI Spine lumbar wo contrast [id number] 2018-03-11 00:00:00 [facility] Computed tomography of brain without radiopaque contrast 201 12-10-23 00:00:00 MITZY ZHU [facility] Encounters Start Date/Time End Date/Time Encounter Type Admission Type Attendi [facility] Facility Care Department Encounter ID Source 2019-06-22 13:15:00 2019-06-22 13:15:00 Appointment; KARIN MLILIGAN M.D. CUPIC, ZORAN, M.D. [facility] [id number] [facility] 2019-02-13 13:45:00 2019-02-13 13:45:00 Appointment; KARIN MILLIGAN M.D. CUPIC, ZORAN, M.D. [facility] [id number] [facility] 2018-12-15 10:15:00 2018-12-15 10:15:00 Appointment; KARIN MILLIGAN M.D. CUPIC, ZORAN, M.D. [facility] [id number] [facility] 2018-10-27 14:15:00 2018-10-27 14:15:00 Appointment; KARIN MILLIGAN M.D. CUPIC, ZORAN, M.D. [facility] [id number] [facility] 2018-08-09 10:45:00 2018-08-09 10:45:00 Appointment; KARIN MILLIGAN M.D. CUPIC, ZORAN, M.D. [facility] [id number] [facility] 2018-07-19 22:39:00 2018-07-21 12:21:00 Discharged Inpatient (obs) 1 RUSTY NAVA [facility] [id number] [facility] 2018-06-28 13:30:00 2018-06-28 13:30:00 Appointment; KARIN MILLIGAN M.D. CUPIC, ZORAN, M.D. [facility] [id number] [facility] 2018-06-14 10:15:00 2018-06-14 10:15:00 Appointment; KARIN MILLIGAN M.D. CUPIC, ZORAN, M.D. [facility] [id number] [facility] 2018-05-05 11:30:00 2018-05-05 11:30:00 Appointment; KARIN MILLIGAN M.D. CUPIC, ZORAN, M.D. [facility] [id number] [facility] 2018-03-27 21:09:00 2018-03-29 10:56:00 Discharged Inpatient [facility] [id number] [facility] 2018-03-11 10:00:00 2018-03-11 10:00:00 Appointment; CUPIC, Christian FRAZIER ZORAN, M.D. [facility] [id number] [facility] 2018-01-24 07:47:00 2018-01-24 12:40:00 Departed Emergency Room 1 DAVON GAO [facility] [id number] [facility] Results Test Description Test Time Test Comments Results Result Comments Source Creatine Kinase MB 2018-07-20 16:10:00 Test Item Creatine Kinase MB (test code = 33202-5) 1.60 0-5.0 [facility]view[facility]roponin [id number] 16:10:00* Test Item Value Reference Range Interpretation Comments Troponin I (test code = TQO9615) 0.008 0-0.300 [facility]viewCreatine Lpxtbe3473-64-38 15:57:00* Test Item Value Reference Range Interpretation Comments Creatine Kinase (test code = 2157-6) 151 30-200 [facility]viewTriglycerides Tfzwq4812-00-63 07:21:00* Test Item Value Reference Range Interpretation Comments Triglycerides Level (test code = 2571-8) 281 0-149 H [facility]viewCholesterol Mrqkg9153-48-11 07:21:00* Test Item Value Reference Range Interpretation Comments Cholesterol Level (test code = 2093-3) 107 0-199 Less than 200 mg/dL Low Ckgu859 - 239 mg/dL Borderline Auqm390 m g/dl and greater High Risk [facility]viewLDL Tuynfnxtkpm4103-92-40 07:21:00* Test Item Value Reference Range Interpretation Comments LDL Cholesterol (test code = 2089-1) 23 60-130 L [facility]viewHDL Sahoanqfdhr7551-42-37 07:21:00* Test Item Value Reference Range Interpretation Comments HDL Cholesterol (test code = 2085-9) 28 40-60 L [facility]viewCholesterol/HDL Tinyb6066-31-58 07:21:00 * Test Item Value Reference Range Interpretation Comments Cholesterol/HDL Ratio (test code = 9830-1) 3.8 3.9-4.7 L [facility]viewCHEST SINGLE (PORTABLE)2018-07-19 22:43:00 [facility] [address] [place] [address] Patient Name: PRABHAKAR MOSQUERA II MR #: [id number] : 1970 Age/Sex: 48/M Req #: [id number] Adm Physician: RUSTY NAVA MD Ordered by: ERIKA GAMBOA MD Report #: [id number] Location: [facility] Room/Bed: [place] [address] Procedure: [id number] DX/CHEST SINGLE (PORTABLE) Exam Date: 07/19/18 E xam Time: 2204 REPORT STATUS: Vicki d Examination: Single AP view of the chest. COMPARISON: None. INDIC ATION: Chest pain, high blood pressure IMPRESSION: 1. Lines and Tubes: None 2. Lungs are grossly clear. No consolidation or effusion. 3. Cardiomediastinal silhouette is normal. Pulmonary vasculature is normal. 4. No acute bony abnormalities. Signed by: Dr. Robert Ivey M.D. on 07/01 10:43 PM Dictated By: ROBERT IVEY MD 42 Transcribed By: DAPHNEY on 07/19/182242 COPY TO: ERIKA GAMBOA MD B-Type Natriuretic Ltuwhvb4526-39-11 22:05:00* Test Item Value Reference Range Interpretation Comments B-Type Natriuretic Peptide (test code = 57480-7) 12.9 0-100 [facility] Counted 2018-07-19 21:45:00* Test Item Value Reference Range Interpretation Comments Differential Total Cells Counted (test code = Differen tial Total Cells Counted) 100 [facility]viewNeutrophils % (Manual)2018-07-19 21:45:00 * Test Item Value Reference Range Interpretation Comments Neutrophils % (Manual) (test code = 23023-3) 62 40-74 [facility]viewLymphocytes % (Manual)2018-07-19 21:45:00 * Test Item Value Reference Range Interpretation Comments Lymphocytes % (Manual) (test code = 737-7) 27 19-48 [facility]viewMonocytes % (Manual)2018-07-19 21:45:00* Test Item Value Reference Range Interpretation Comments Monocytes % (Manual) (test code = 744-3) 4 3.4-9.0 [facility]osinophils % (Manual)2018-07-19 21:45:00 * Test Item Value Reference Range Interpretation Comments Eosinophils % (Manual) (test code = 714-6) 5 0-7 [facility]viewBasophils % (Manual)2018-07-19 21:45:00* Test Item Value Reference Range Interpretation Comments Basophils % (Manual) (test code = 50417-9) 1 0-1.5 [facility]viewReactive Gmvgskygroo2929-27-65 21:45:00* Test Item Value Reference Range Interpretation Comments Reactive Lymphocytes (test code = 29837-9) 1 [facility] PlainviewPlatelet Vhqpwpwi3042-42-13 21:45:00* Test Item Value Reference Range Interpretation Comments Platelet Estimate (test code = 02058-6) ADEQUATE [facility] PlainviewPlatelet Morphology Abwihii0610-95-13 21:45:00* Test Item Value Reference Range Interpretation Comments Platelet Morphology Comment (test code = 17894-1) FEW GIANT [facility]viewRed Cell Morphology Dbjuwne0804-50-53 21:45:00* Test Item Value Reference Range Interpretation Comments Red Cell Morphology Comment (test code = 6742-1) NORMAL [facility] Uagbh3865-22-94 21:23:00* Test Item Value Reference Range Interpretation Comments Sodium Level (test code = 2951-2) 141 136-145 [facility]viewPotassium Sdjmh7478-12-76 21:23:00* Test Item Value Reference Range Interpretation Comments Potassium Level (test code = 2823-3) 4.0 3.5-5.1 [facility]viewChloride Qujic6286-87-82 21:23:00* Test Item Value Reference Range Interpretation Comments Chloride Level (test code = 2075-0) 105 98-107 [facility] PlainviewCarbon Dioxide Temos8888-62-56 21:23:00* Test Item Value Reference Range Interpretation Comments Carbon Dioxide Level (test code = 2028-9) 25 22-29 [facility] PlainviewAnion Uqk6248-09-12 21:23:00* Test Item Value Reference Range Interpretation Comments Anion Gap (test code = 08096-3) 15.0 8-16 [facility]viewBlood Urea Bbrqllsv3768-49-67 21:23:00* Test Item Value Reference Range Interpretation Comments Blood Urea Nitrogen (test code = 3094-0) 13 7-26 [facility]viewCreatinine2019-03-19 21:23:00* Test Item Value Reference Range Interpretation Comments Creatinine (test code = 2160-0) 1.15 0.72-1.25 [facility]viewBUN/Creatinine Wqmcg8524-40-77 21:23:00* Test Item Value Reference Range Interpretation Comments BUN/Creatinine Ratio (test code = 3097-3) 11 6-25 [facility] PlainviewEstimat Glomerular Filtration Rate 2018-07-19 21:23:00* Test Item Value Reference Range Interpretation Comments Estimat Glomerular Filtration Rate (test code = 387862571) > 60 >60 Ranges were taken from the National Kidney Disease Education Program and the [facility] Kid[facility] Foundation literature.Reference ranges:60 or greater: Wuahcj82-27 ( for 3 consecutive months): Chronic kidney disease 15 or less: Kidney failureCovenant Health PlainviewGlucose Abhxq6124-61-06 21:23:00* Test Item Value Reference Range Interpretation Comments Glucose Level (test code = MOY3805) 94 74-118 [facility]viewCalcium Xeofo7031-50-85 21:23:00* Test Item Value Reference Range Interpretation Comments Calcium Level (test code = 75551-7) 9.8 8.4-10.2 [facility]viewTotal Ikvluegpr4601-01-93 21:23:00* Test Item Value Reference Range Interpretation Comments Total Bilirubin (test code = 1975-2) 0.8 0.2-1.2 [facility] PlainviewAspartate Amino Transf (AST/SGOT) 2018-07-19 21:23:00* Test Item Value Reference Range Interpretation Comments Aspartate Amino Transf (AST/SGOT) (test code = Aspartate Amino Transf (AST/SGOT)) 16 5-34 [facility] PlainviewAlanine Aminotransferase (ALT/SGPT) 2018-07-19 21:23:00* Test Item Value Reference Range Interpretation Comments Alanine Aminotransferase (ALT/SGPT) (test code = 1742-6) 19 0-55 [facility]viewTotal Nxhjyyi7773-13-08 21:23:00* Test Item Value Reference Range Interpretation Comments Total Protein (test code = 2885-2) 7.8 6.5-8.1 [facility] PlainviewAlbumin2019-03-19 21:23:00* Test Item Value Reference Range Interpretation Comments Albumin (test code = 1751-7) 4.3 3.5-5.0 [facility]viewGlobulin2019-03-19 21:23:00* Test Item Value Reference Range Interpretation Comments Globulin (test code = 54510-7) 3.5 2.3-3.5 [facility]viewAlbumin/Globulin Gwolz4905-37-15 21:23:00 * Test Item Value Reference Range Interpretation Comments Albumin/Globulin Ratio (test code = 1759-0) 1.2 0.8-2.0 [facility]viewAlkaline Suvzupiskoh0723-13-70 21:23:00* Test Item Value Reference Range Interpretation Comments Alkaline Phosphatase (test code = 6768-6) 79 40-150 [facility]viewProthrombin Heqy6665-94-90 21:16:00* Test Item Value Reference Range Interpretation Comments Prothrombin Time (test code = 5902-2) 12.1 11.9-14.5 [facility]viewProthromb Time International Ratio 2018-07-19 21:16:00* Test Item Value Reference Range Interpretation Comments Prothromb Time International Ratio (test code = 6301-6) 0.85 Oral Anticoagulant Therapy INR Values:1. Low Intensity Therapy 1.5 - 2.02 . Moderate Intensity Therapy 2.0 - 3.03. High Intensity Therapy(1) 2.5 - 3. 54. High Intensity Therapy(2) 3.0 - 4.05. Panic Value INR > 5.0 [facility] PlainviewActivated Partial Thromboplast Time 2018-07-19 21:16:00* Test Item Value Reference Range Interpretation Comments Activated Partial Thromboplast Time (test code = 23905-1) 32.6 23.8-35.5 [facility]viewWhite Blood Ygmmu3850-90-03 21:08:00* Test Item Value Reference Range Interpretation Comments White Blood Count (test code = 6690-2) 12.41 4.8-10.8 H [facility]viewRed Blood Ivgom8664-99-24 21:08:00* Test Item Value Reference Range Interpretation Comments Red Blood Count (test code = 789-8) 4.96 4.3-5.7 [facility]viewHemoglobin2019-03-19 21:08:00* Test Item Value Reference Range Interpretation Comments Hemoglobin (test code = 27781-3) 15.1 14.0-18.0 [facility]viewHematocrit2019-03-19 21:08:00* Test Item Value Reference Range Interpretation Comments Hematocrit (test code = 4544-3) 44.8 38.2-49.6 [facility] PlainviewMean Corpuscular Fadfna0910-93-05 21:08:00* Test Item Value Reference Range Interpretation Comments Mean Corpuscular Volume (test code = 787-2) 90.3 81-99 [facility]viewMean Corpuscular Wscwrmcbug0951-95-95 21:08:00* Test Item Value Reference Range Interpretation Comments Mean Corpuscular Hemoglobin (test code = 785-6) 30.4 28-32 [facility] PlainviewMean Corpuscular Hemoglobin Concent 2018-07-19 21:08:00* Test Item Value Reference Range Interpretation Comments Mean Corpuscular Hemoglobin Concent (test code = 786-4) 33.7 31-35 [facility] PlainviewRed Cell Distribution Vextx1863-12-55 21:08:00* Test Item Value Reference Range Interpretation Comments Red Cell Distribution Width (test code = 25509-5) 13.4 11.7 -14.4 [facility] PlainviewPlatelet Wavws8614-72-37 21:08:00* Test Item Value Reference Range Interpretation Comments Platelet Count (test code = 777-3) 312 140-360 [facility] Qlapa7625-51-50 05:34:00* Test Item Value Reference Range Interpretation Comments Sodium Level (test code = 2951-2) 138 136-145 [facility]viewPotassium Qwtlw0401-41-75 05:34:00* Test Item Value Reference Range Interpretation Comments Potassium Level (test code = 2823-3) 4.1 3.5-5.1 [facility]viewChloride Pdycn4095-77-01 05:34:00* Test Item Value Reference Range Interpretation Comments Chloride Level (test code = 2075-0) 105 98-107 [facility] PlainviewCarbon Dioxide Hznjo4886-21-72 05:34:00* Test Item Value Reference Range Interpretation Comments Carbon Dioxide Level (test code = 2028-9) 26 22-29 [facility] PlainviewAnion Ttx7489-92-82 05:34:00* Test Item Value Reference Range Interpretation Comments Anion Gap (test code = 91733-7) 11.1 8-16 [facility]viewBlood Urea Mpawvekp4946-26-20 05:34:00* Test Item Value Reference Range Interpretation Comments Blood Urea Nitrogen (test code = 3094-0) 15 7-26 [facility] PlainviewCreatinine2018-11-27 05:34:00* Test Item Value Reference Range Interpretation Comments Creatinine (test code = 2160-0) 1.09 0.72-1.25 [facility]viewBUN/Creatinine Hfmdn3888-95-33 05:34:00* Test Item Value Reference Range Interpretation Comments BUN/Creatinine Ratio (test code = 3097-3) 14 6-25 [facility] PlainviewEstimat Glomerular Filtration Rate 2018-03-29 05:34:00* Test Item Value Reference Range Interpretation Comments Estimat Glomerular Filtration Rate (test code = 638197463) > 60 >60 Ranges were taken from the National Kidney Disease Education Program and the [facility] Kidney Foundation literature.Reference ranges:60 or greater: Eaoevz93-50 ( for 3 consecutive months): Chronic kidney disease 15 or less: Kidney failureCovenant Health PlainviewGlucose Sjnff4296-87-66 05:34:00* Test Item Value Reference Range Interpretation Comments Glucose Level (test code = ZLN7512) 98 74-118 [facility] PlainviewCalcium Topts2675-29-08 05:34:00* Test Item Value Reference Range Interpretation Comments Calcium Level (test code = 88799-8) 9.3 8.4-10.2 [facility]viewTotal Kvlbdjulr1903-86-51 05:34:00* Test Item Value Reference Range Interpretation Comments Total Bilirubin (test code = 1975-2) 0.9 0.2-1.2 [facility] PlainviewAspartate Amino Transf (AST/SGOT) 2018-03-29 05:34:00* Test Item Value Reference Range Interpretation Comments Aspartate Amino Transf (AST/SGOT) (test code = Aspartate Amino Transf (AST/SGOT)) 53 5-34 H [facility] PlainviewAlanine Aminotransferase (ALT/SGPT) 2018-03-29 05:34:00* Test Item Value Reference Range Interpretation Comments Alanine Aminotransferase (ALT/SGPT) (test code = 1742-6) 36 0-55 [facility]viewTotal Dslceay2599-83-30 05:34:00* Test Item Value Reference Range Interpretation Comments Total Protein (test code = 2885-2) 6.4 6.5-8.1 L [facility] PlainviewAlbumin2018-11-27 05:34:00* Test Item Value Reference Range Interpretation Comments Albumin (test code = 1751-7) 3.4 3.5-5.0 L [facility] PlainviewGlobulin2018-11-27 05:34:00* Test Item Value Reference Range Interpretation Comments Globulin (test code = 97114-3) 3.0 2.3-3.5 [facility]viewAlbumin/Globulin Weowt0585-05-72 05:34:00 * Test Item Value Reference Range Interpretation Comments Albumin/Globulin Ratio (test code = 1759-0) 1.1 0.8-2.0 [facility]viewAlkaline Txuspxoljpz2155-84-75 05:34:00* Test Item Value Reference Range Interpretation Comments Alkaline Phosphatase (test code = 6768-6) 58 40-150 [facility] PlainviewWhite Blood Gjdaw0525-48-60 04:58:00* Test Item Value Reference Range Interpretation Comments White Blood Count (test code = 6690-2) 14.81 4.8-10.8 H [facility] PlainviewRed Blood Tlcne0353-58-18 04:58:00* Test Item Value Reference Range Interpretation Comments Red Blood Count (test code = 789-8) 4.47 4.3-5.7 [facility]viewHemoglobin2018-11-27 04:58:00* Test Item Value Reference Range Interpretation Comments Hemoglobin (test code = 35831-8) 14.0 14.0-18.0 [facility]viewHematocrit2018-11-27 04:58:00* Test Item Value Reference Range Interpretation Comments Hematocrit (test code = 4544-3) 41.4 38.2-49.6 [facility] [facility] Corpuscular Sqabqi6649-60-56 04:58:00* Test Item Value Reference Range Interpretation Comments Mean Corpuscular Volume (test code = 787-2) 92.6 81-99 [facility]viewMean Corpuscular Auvalhxkws6564-60-40 04:58:00* Test Item Value Reference Range Interpretation Comments Mean Corpuscular Hemoglobin (test code = 785-6) 31.3 28-32 [facility]viewMean Corpuscular Hemoglobin Concent 2018-03-29 04:58:00* Test Item Value Reference Range Interpretation Comments Mean Corpuscular Hemoglobin Concent (test code = 786-4) 33.8 31-35 [facility]viewRed Cell Distribution Sctfs8679-80-48 04:58:00* Test Item Value Reference Range Interpretation Comments Red Cell Distribution Width (test code = 88480-3) 14.0 11.7 -14.4 [facility] PlainviewPlatelet Doosb1987-20-56 04:58:00* Test Item Value Reference Range Interpretation Comments Platelet Count (test code = 777-3) 293 140-360 [facility] PlainviewNeutrophils (%) (Auto)2018-03-29 04:58:00 * Test Item Value Reference Range Interpretation Comments Neutrophils (%) (Auto) (test code = 16598-5) 65.6 38.7-80.0 [facility] PlainviewLymphocytes (%) (Auto)2018-03-29 04:58:00 * Test Item Value Reference Range Interpretation Comments Lymphocytes (%) (Auto) (test code = 736-9) 23.5 18.0-39.1 [facility]viewMonocytes (%) (Auto)2018-03-29 04:58:00* Test Item Value Reference Range Interpretation Comments Monocytes (%) (Auto) (test code = 5905-5) 7.6 4.4-11.3 [facility]viewEosinophils (%) (Auto)2018-03-29 04:58:00 * Test Item Value Reference Range Interpretation Comments Eosinophils (%) (Auto) (test code = 713-8) 2.3 0.0-6.0 [facility]viewBasophils (%) (Auto)2018-03-29 04:58:00* Test Item Value Reference Range Interpretation Comments Basophils (%) (Auto) (test code = 706-2) 0.5 0.0-1.0 [facility]viewIM GRANULOCYTES %2018-03-29 04:58:00* Test Item Value Reference Range Interpretation Comments IM GRANULOCYTES % (test code = IM GRANULOCYTES %) 0.5 0.0- 1.0 [facility] PlainviewNeutrophils # (Auto)2018-03-29 04:58:00* Test Item Value Reference Range Interpretation Comments Neutrophils # (Auto) (test code = 751-8) 9.7 2.1-6.9 H [facility] PlainviewLymphocytes # (Auto)2018-03-29 04:58:00* Test Item Value Reference Range Interpretation Comments Lymphocytes # (Auto) (test code = 09237-9) 3.5 1.0-3.2 H [facility] PlainviewMonocytes # (Auto)2018-03-29 04:58:00* Test Item Value Reference Range Interpretation Comments Monocytes # (Auto) (test code = 742-7) 1.1 0.2-0.8 H [facility]viewEosinophils # (Auto)2018-03-29 04:58:00* Test Item Value Reference Range Interpretation Comments Eosinophils # (Auto) (test code = 711-2) 0.3 0.0-0.4 [facility]viewBasophils # (Auto)2018-03-29 04:58:00* Test Item Value Reference Range Interpretation Comments Basophils # (Auto) (test code = 704-7) 0.1 0.0-0.1 [facility]viewAbsolute Immature Granulocyte (auto 2018-03-29 04:58:00* Test Item Value Reference Range Interpretation Comments Absolute Immature Granulocyte (auto (dorota t code = Absolute Immature Granulocyte (auto) 0.08 0-0.1 [facility]viewNeutrophils (%) (Auto)2018-03-29 04:58:00 * Test Item Value Reference Range Interpretation Comments Neutrophils (%) (Auto) (test code = 87655-3) 65.6 38.7-80.0 [facility] PlainviewLymphocytes (%) (Auto)2018-03-29 04:58:00 * Test Item Value Reference Range Interpretation Comments Lymphocytes (%) (Auto) (test code = 736-9) 23.5 18.0-39.1 [facility]viewMonocytes (%) (Auto)2018-03-29 04:58:00* Test Item Value Reference Range Interpretation Comments Monocytes (%) (Auto) (test code = 5905-5) 7.6 4.4-11.3 [facility]viewEosinophils (%) (Auto)2018-03-29 04:58:00 * Test Item Value Reference Range Interpretation Comments Eosinophils (%) (Auto) (test code = 713-8) 2.3 0.0-6.0 [facility]viewBasophils (%) (Auto)2018-03-29 04:58:00* Test Item Value Reference Range Interpretation Comments Basophils (%) (Auto) (test code = 706-2) 0.5 0.0-1.0 [facility]viewIM GRANULOCYTES %2018-03-29 04:58:00* Test Item Value Reference Range Interpretation Comments IM GRANULOCYTES % (test code = IM GRANULOCYTES %) 0.5 0.0- 1.0 [facility]viewNeutrophils # (Auto)2018-03-29 04:58:00* Test Item Value Reference Range Interpretation Comments Neutrophils # (Auto) (test code = 751-8) 9.7 2.1-6.9 H [facility] PlainviewLymphocytes # (Auto)2018-03-29 04:58:00* Test Item Value Reference Range Interpretation Comments Lymphocytes # (Auto) (test code = 57750-9) 3.5 1.0-3.2 H [facility]viewMonocytes # (Auto)2018-03-29 04:58:00* Test Item Value Reference Range Interpretation Comments Monocytes # (Auto) (test code = 742-7) 1.1 0.2-0.8 H [facility]viewEosinophils # (Auto)2018-03-29 04:58:00* Test Item Value Reference Range Interpretation Comments Eosinophils # (Auto) (test code = 711-2) 0.3 0.0-0.4 [facility]viewBasophils # (Auto)2018-03-29 04:58:00* Test Item Value Reference Range Interpretation Comments Basophils # (Auto) (test code = 704-7) 0.1 0.0-0.1 [facility]viewAbsolute Immature Granulocyte (auto 2018-03-29 04:58:00* Test Item Value Reference Range Interpretation Comments Absolute Immature Granulocyte (auto (dorota t code = Absolute Immature Granulocyte (auto) 0.08 0-0.1 [facility] PlainviewCreatine Kinase AJ1067-13-78 13:07:00* Test Item Value Reference Range Interpretation Comments Creatine Kinase MB (test code = 71427-4) 104.40 0-5.0 H [facility] PlainviewTroponin Z5843-26-32 13:07:00* Test Item Value Reference Range Interpretation Comments Troponin I (test code = MRQ5545) 39.531 0-0.300 H Elevated result called to ANIL SYLVESTER RN at 1306 on 03/28/18 by Marissa Carrillo. [facility] PlainviewCreatine Bmqomt4472-34-55 13:01:00* Test Item Value Reference Range Interpretation Comments Creatine Kinase (test code = 2157-6) 1241 30-200 H [facility] PlainviewTriglycerides Smtuh0812-14-91 06:11:00* Test Item Value Reference Range Interpretation Comments Triglycerides Level (test code = 2571-8) 273 0-149 H [facility] PlainviewCholesterol Xsxek1346-16-23 06:11:00* Test Item Value Reference Range Interpretation Comments Cholesterol Level (test code = 2093-3) 170 0-199 Less than 200 mg/dL Low Noff103 - 239 mg/dL Borderline Blnp618 m g/dl and greater High Risk [facility] PlainviewLDL Mwhjmhilwun7393-89-39 06:11:00* Test Item Value Reference Range Interpretation Comments LDL Cholesterol (test code = 2089-1) 83 60-130 [facility] PlainviewHDL Qywzzqbvbhy3961-60-33 06:11:00* Test Item Value Reference Range Interpretation Comments HDL Cholesterol (test code = 2085-9) 32 40-60 L [facility] PlainviewCholesterol/HDL Dckix4927-22-69 06:11:00 * Test Item Value Reference Range Interpretation Comments Cholesterol/HDL Ratio (test code = 9830-1) 5.3 3.9-4.7 H [facility] PlainviewHemoglobin A1c Tmamhuz0115-99-24 05:35:00 * Test Item Value Reference Range Interpretation Comments Hemoglobin A1c Percent (test code = Hemoglobin A1c Percent) 5.5 4.0-7.0 [facility] PlainviewHemoglobin A1c Efteeik6680-60-71 05:35:00 * Test Item Value Reference Range Interpretation Comments Hemoglobin A1c Percent (test code = Hemoglobin A1c Percent) 5.5 4.0-7.0 [facility] PlainviewDifferential Total Cells Counted 2018-03-27 22:27:00* Test Item Value Reference Range Interpretation Comments Differential Total Cells Counted (test code = Differen tial Total Cells Counted) 100 [facility] PlainviewNeutrophils % (Manual)2018-03-27 22:27:00 * Test Item Value Reference Range Interpretation Comments Neutrophils % (Manual) (test code = 81529-2) 68 40-74 [facility]viewLymphocytes % (Manual)2018-03-27 22:27:00 * Test Item Value Reference Range Interpretation Comments Lymphocytes % (Manual) (test code = 737-7) 22 19-48 [facility]viewMonocytes % (Manual)2018-03-27 22:27:00* Test Item Value Reference Range Interpretation Comments Monocytes % (Manual) (test code = 744-3) 6 3.4-9.0 [facility]viewEosinophils % (Manual)2018-03-27 22:27:00 * Test Item Value Reference Range Interpretation Comments Eosinophils % (Manual) (test code = 714-6) 3 0-7 [facility]viewBasophils % (Manual)2018-03-27 22:27:00* Test Item Value Reference Range Interpretation Comments Basophils % (Manual) (test code = 29697-3) 1 0-1.5 [facility]viewPlatelet Sumasxdx6770-07-56 22:27:00* Test Item Value Reference Range Interpretation Comments Platelet Estimate (test code = 72695-8) ADEQUATE [facility] PlainviewPlatelet Morphology Geusdjy5880-42-46 22:27:00* Test Item Value Reference Range Interpretation Comments Platelet Morphology Comment (test code = 07926-2) FEW LARGE [facility] PlainviewRed Cell Morphology Zagawpp1912-92-97 22:27:00* Test Item Value Reference Range Interpretation Comments Red Cell Morphology Comment (test code = 6742-1) NORMAL [facility] PlainviewProthrombin Rnpt1521-39-51 20:52:00* Test Item Value Reference Range Interpretation Comments Prothrombin Time (test code = 5902-2) 11.9 11.9-14.5 [facility] PlainviewProthromb Time International Ratio 2018-03-27 20:52:00* Test Item Value Reference Range Interpretation Comments Prothromb Time International Ratio (test code = 6301-6) 0.80 Oral Anticoagulant Therapy INR Values:1. Low Intensity Therapy 1.5 - 2.02 . Moderate Intensity Therapy 2.0 - 3.03. High Intensity Therapy(1) 2.5 - 3. 54. High Intensity Therapy(2) 3.0 - 4.05. Panic Value INR > 5.0 [facility] PlainviewWhite Blood Zltvs9285-06-94 09:19:00* Test Item Value Reference Range Interpretation Comments White Blood Count (test code = 6690-2) 10.79 4.8-10.8 [facility] PlainviewRed Blood Dhbra9131-12-58 09:19:00* Test Item Value Reference Range Interpretation Comments Red Blood Count (test code = 789-8) 5.34 4.3-5.7 [facility] PlainviewHemoglobin2018-09-24 09:19:00* Test Item Value Reference Range Interpretation Comments Hemoglobin (test code = 90385-3) 16.7 14.0-18.0 [facility] PlainviewHematocrit2018-09-24 09:19:00* Test Item Value Reference Range Interpretation Comments Hematocrit (test code = 4544-3) 48.3 38.2-49.6 [facility]viewMean Corpuscular Qotsqp7521-60-12 09:19:00* Test Item Value Reference Range Interpretation Comments Mean Corpuscular Volume (test code = 787-2) 90.4 81-99 [facility]viewMean Corpuscular Agiadiznwb8103-49-07 09:19:00* Test Item Value Reference Range Interpretation Comments Mean Corpuscular Hemoglobin (test code = 785-6) 31.3 28-32 [facility]viewMean Corpuscular Hemoglobin Concent 2018-01-24 09:19:00* Test Item Value Reference Range Interpretation Comments Mean Corpuscular Hemoglobin Concent (test code = 786-4) 34.6 31-35 [facility] PlainviewRed Cell Distribution Kdalp8562-65-41 09:19:00* Test Item Value Reference Range Interpretation Comments Red Cell Distribution Width (test code = 74273-5) 13.1 11.7 -14.4 [facility] PlainviewPlatelet Jpbhl4044-31-63 09:19:00* Test Item Value Reference Range Interpretation Comments Platelet Count (test code = 777-3) 301 140-360 [facility] PlainviewNeutrophils (%) (Auto)2018-01-24 09:19:00 * Test Item Value Reference Range Interpretation Comments Neutrophils (%) (Auto) (test code = 95981-5) 57.4 38.7-80.0 [facility] PlainviewLymphocytes (%) (Auto)2018-01-24 09:19:00 * Test Item Value Reference Range Interpretation Comments Lymphocytes (%) (Auto) (test code = 736-9) 31.1 18.0-39.1 [facility]viewMonocytes (%) (Auto)2018-01-24 09:19:00* Test Item Value Reference Range Interpretation Comments Monocytes (%) (Auto) (test code = 5905-5) 5.7 4.4-11.3 [facility]viewEosinophils (%) (Auto)2018-01-24 09:19:00 * Test Item Value Reference Range Interpretation Comments Eosinophils (%) (Auto) (test code = 713-8) 4.3 0.0-6.0 [facility]viewBasophils (%) (Auto)2018-01-24 09:19:00* Test Item Value Reference Range Interpretation Comments Basophils (%) (Auto) (test code = 706-2) 1.1 0.0-1.0 H [facility] PlainviewIM GRANULOCYTES %2018-01-24 09:19:00* Test Item Value Reference Range Interpretation Comments IM GRANULOCYTES % (test code = IM GRANULOCYTES %) 0.4 0.0- 1.0 [facility] PlainviewNeutrophils # (Auto)2018-01-24 09:19:00* Test Item Value Reference Range Interpretation Comments Neutrophils # (Auto) (test code = 751-8) 6.2 2.1-6.9 [facility]viewLymphocytes # (Auto)2018-01-24 09:19:00* Test Item Value Reference Range Interpretation Comments Lymphocytes # (Auto) (test code = 21045-3) 3.4 1.0-3.2 H [facility] PlainviewMonocytes # (Auto)2018-01-24 09:19:00* Test Item Value Reference Range Interpretation Comments Monocytes # (Auto) (test code = 742-7) 0.6 0.2-0.8 [facility]viewEosinophils # (Auto)2018-01-24 09:19:00* Test Item Value Reference Range Interpretation Comments Eosinophils # (Auto) (test code = 711-2) 0.5 0.0-0.4 H [facility]viewBasophils # (Auto)2018-01-24 09:19:00* Test Item Value Reference Range Interpretation Comments Basophils # (Auto) (test code = 704-7) 0.1 0.0-0.1 [facility]viewAbsolute Immature Granulocyte (auto 2018-01-24 09:19:00* Test Item Value Reference Range Interpretation Comments Absolute Immature Granulocyte (auto (dorota t code = Absolute Immature Granulocyte (auto) 0.04 0-0.1 [facility] Nwpje1513-39-75 09:04:00* Test Item Value Reference Range Interpretation Comments Sodium Level (test code = 2951-2) 136 136-145 [facility] PlainviewPotassium Tjeob1845-79-81 09:04:00* Test Item Value Reference Range Interpretation Comments Potassium Level (test code = 2823-3) 4.4 3.5-5.1 [facility] PlainviewChloride Rmyim4165-09-98 09:04:00* Test Item Value Reference Range Interpretation Comments Chloride Level (test code = 2075-0) 101 98-107 [facility] PlainviewCarbon Dioxide Pfkme1417-91-18 09:04:00* Test Item Value Reference Range Interpretation Comments Carbon Dioxide Level (test code = 2028-9) 24 -29 [facility] PlainviewAnion Jxv5910-31-77 09:04:00* Test Item Value Reference Range Interpretation Comments Anion Gap (test code = 30837-0) 15.4 8-16 [facility] PlainviewBlood Urea Vrihfifm9032-27-65 09:04:00* Test Item Value Reference Range Interpretation Comments Blood Urea Nitrogen (test code = 3094-0) 14 7-26 [facility] PlainviewCreatinine2018-09-24 09:04:00* Test Item Value Reference Range Interpretation Comments Creatinine (test code = 2160-0) 1.33 0.72-1.25 H [facility] PlainviewBUN/Creatinine Vuhqr9272-86-39 09:04:00* Test Item Value Reference Range Interpretation Comments BUN/Creatinine Ratio (test code = 3097-3) 11 6-25 [facility] PlainviewEstimat Glomerular Filtration Rate 2018-01-24 09:04:00* Test Item Value Reference Range Interpretation Comments Estimat Glomerular Filtration Rate (test code = 300666383) 58 >60 L Ranges were taken from the National Kidney Disease Education Program and the Do [facility] literature.Reference ranges:60 or greater: Hnnkme02-73 ( for 3 consecutive months): Chronic kidney disease 15 or less: Kidney failureCHI Texas Vista Medical CenterGlucose Byyfl6671-46-43 09:04:00* Test Item Value Reference Range Interpretation Comments Glucose Level (test code = EVM5580) 104 74-118 [facility] PlainviewCalcium Fxhif2722-00-14 09:04:00* Test Item Value Reference Range Interpretation Comments Calcium Level (test code = 13802-5) 10.3 8.4-10.2 H [facility] PlainviewTotal Tyujjbexr4270-66-20 09:04:00* Test Item Value Reference Range Interpretation Comments Total Bilirubin (test code = 1975-2) 0.5 0.2-1.2 [facility] PlainviewAspartate Amino Transf (AST/SGOT) 2018-01-24 09:04:00* Test Item Value Reference Range Interpretation Comments Aspartate Amino Transf (AST/SGOT) (test code = Aspartate Amino Transf (AST/SGOT)) 16 5-34 [facility] PlainviewAlanine Aminotransferase (ALT/SGPT) 2018-01-24 09:04:00* Test Item Value Reference Range Interpretation Comments Alanine Aminotransferase (ALT/SGPT) (test code = 1742-6) 23 0-55 [facility] PlainviewTotal Xscwlpn9894-08-68 09:04:00* Test Item Value Reference Range Interpretation Comments Total Protein (test code = 2885-2) 7.6 6.5-8.1 [facility] PlainviewAlbumin2018-09-24 09:04:00* Test Item Value Reference Range Interpretation Comments Albumin (test code = 1751-7) 4.2 3.5-5.0 [facility] PlainviewGlobulin2018-09-24 09:04:00* Test Item Value Reference Range Interpretation Comments Globulin (test code = 37797-1) 3.4 2.3-3.5 [facility] PlainviewAlbumin/Globulin Ysdbf1926-73-30 09:04:00 * Test Item Value Reference Range Interpretation Comments Albumin/Globulin Ratio (test code = 1759-0) 1.2 0.8-2.0 [facility] PlainviewAlkaline Dcdrhcmlngr1559-55-61 09:04:00* Test Item Value Reference Range Interpretation Comments Alkaline Phosphatase (test code = 6768-6) 65 40-150 [facility] PlainviewCT BRAIN OQ8860-15-26 08:55:00 [facility] [address] [address] Patient Name: PRABHAKAR MOSQUERA II MR #: [id number] : 1970 Age/Sex: 48/M Req #: [id number] Adm Ph ysician: Ordered by: MITZY ZHU [employer] Report #: [id number] Location: ER Room/Bed: Procedure: [id number] CT/CT BRAIN WO Ex am Date: 01/24/18 Exam Time: 829 REPORT STATUS : Signed EXAMINATION: Head CT HISTORY: Headaches, hypertension COMPAR DEIDRA: None. TECHNIQUE: Multidetector axial images were obtained without contra st from the foramen magnum to the vertex . The images were reconstructed using brain and bone algorithms. Thin section brain images were reformatted into c oronal and sagittal planes. Image quality: Motion/streaking artifact limits the evaluation of the skull base and posterior cranial fossa. Dose modula tion, iterative reconstruction, and/or weight based adjustment of the mA/kV wa s utilized to reduce the radiation dose to as low as reasonably achievable. FINDINGS: Parenchyma: 1. No abnormal densities. 2. No mass or hemorrhage. No CT evidence of acute territorial vascular insult. Extra-axial spaces:No abnormal density. No extra-axial fluid collections Brain volume: Mild generalized brain volume loss. Ventricles: No hydrocephalus or displacement. Arteries: No density suggestive of thro mbus. Dural sinuses: No abnormal density. Extra-axial spaces: No abnormal density. Foramen magnum: No mass, Chiari malformation, or basi lar invagination. Sella: No obvious mass. Paranasal/mastoid sin uses: Imaged portions unremarkable. Skull/Scalp: No lytic or blastic les ions. No fractures. IMPRESSION: No intracranial abnormalities, parti cularly no hemorrhage. Signed by: Dr. Bright Chambers M.D. on 01/24/2018 9:00 A M Dictated By: BRIGHT CHAMBERS MD 9 COPY TO: MITZY TELLEZ NP
--- OUTSIDE RECORDS SUMMARY | 2019-12-08 21:41 | XMS REPORT | Summary of Care ---
Author Author PRABHAKAR MILLIGAN M.D. Organization Unknown Address [facility] Phone Unavailable Care Team Providers Care Lay Out Carpenter Name Role Phone KARIN MILLIGAN M.D. Unavailable Unavailable CHEL JONES [facility], KARIN Unavailable Unavailable Unavailable Unavailable Functional Status Name Dates Details Functional status health issues are not documented Status: Name Dates Details Cognitive status health issues are not d ocumented Status: Problems Name Dates Details Lumbar back sprain, initial encounter (8 47.2, S33.5XXA) Status: Active Herniated nucleus pulposus of lumbosacra l region (722.10, M51.27) Status: Active Contusion of ribs, left, subsequent enco unter (V58.89, S20.212D) Status: Active Medications Name Dates Details methylPREDNISolone 4 MG Oral Tablet Ther apy Pack USE DIRECTED Quantity: 1 CUPIC M.D., [...] M.D., KARIN * Start : 28-Jun-2018 Active Etodolac 400 MG Oral Tablet TAKE 1 TABLET TWICE DAILY WITH MEALS. * Quantity: 60 Refills: 4 CUPIC M.D., KARIN * Start : 27-Oct-2018 Active Baclofen 20 MG Oral Tablet TAKE ONE TABLET BY MOUTH TWICE DAILY AFTER A MEAL * Quantity: 60 Refills: 4 CUPIC M.D., KARIN * Start : 27-Oct-2018 Active Nabumetone 750 MG Oral Tablet TAKE 1 TABLET BY MOUTH TWICE DAILY AFTER A MEAL * Quantity: 60 Refills: 4 CUPIC M.D., KARIN * Start : 13-Feb-2019 Active Methocarbamol 750 MG Oral Tablet TAKE 1 TABLET BY MOUTH THREE TIMES DAILY * Quantity: 90 Refills: 4 CUPIC M.D., KARIN * Start : 13-Feb-2019 Active tiZANidine HCl - 4 MG Oral Tablet TAKE 1 TABLET 3 TIMES DAILY NEEDED. * Quantity: 90 Refills: 4 CUPIC M.D., KARIN * Start : 22-Jun-2019 Active Naproxen 500 MG Oral Tablet TAKE ONE TABLET BY MOUTH TWICE A DAY AFTER MEALS * Quantity: 60 Refills: 4 CUPIC M.D., KARIN * Start : 22-Jun-2019 Active Allergies and Adverse Reactions Name Dates Details Allergy history not documented Status: Procedures Procedure Dates Details XRAY Spine lumbar discogram 21239 Date: 22-Jun-2019 CT Spine lumbar w contrast 00375 Date: 22-Jun-2019 Immunization Name Dates Details Immunizations not documented Social History Name Dates Details Unknown if ever smoked Vital Signs Date Test Result Details No Known Vitals to report Results Date Description Value Details Results not documented Plan of Care Name Dates Details Planned Observations Planned Goals not documented Interventions Provided Medication Changes* Naproxen 500 MG Oral Tablet - Start * tiZANidine HCl - 4 MG Oral Tablet - Start Labs/Procedures/Imaging* CT Spine lumbar w contrast 24240; To Be Done: 22 Jun 2019 * XRAY Spine lumbar discogram 47196; To Be Done: 22 Jun 2019 Instructions Name Dates Details Instructions not documented Encounters Appointment; KARIN MILLIGAN M.D. Encounter Diagnosis: Problem not documented On: 11-Mar-2018 10:00 Appointment; KARIN MILLIGAN M.D. Encounter Diagnosis: Problem not documented On: 05-May-2018 11:30 Appointment; KARIN MLILIGAN M.D. Encounter Diagnosis: Problem not documented On: 14-Jun-2018 10:15 Appointment; KARIN MILLIGAN M.D. Encounter Diagnosis: Problem not documented On: 28-Jun-2018 13:30 Appointment; KARIN MILLIGAN M.D. Encounter Diagnosis: Problem not documented On: 09-Aug-2018 10:45 Appointment; KARIN MILLIGAN M.D. Encounter Diagnosis: Problem not documented On: 27-Oct-2018 14:15 Appointment; KARIN MILLIGAN M.D. Encounter Diagnosis: Problem not documented On: 15-Dec-2018 10:15 Appointment; KARIN MILLIGAN M.D. Encounter Diagnosis: Problem not documented On: 13-Feb-2019 13:45 Appointment; KARIN MILLIGAN M.D. Encounter Diagnosis: Problem not documented On: 22-Jun-2019 13:15
--- OUTSIDE RECORDS SUMMARY | 2019-12-08 21:41 | XMS REPORT | Summary of Care ---
Author Author PRABHAKAR MILLIGAN M.D. Organization Unknown Address [facility] Phone Unavailable Care Team Providers Care Catalyst Unit Operator Name Role Phone KARIN MILLIGAN M.D. Unavailable [...] M.D., KARIN * Start : 13-Feb-2019 Active Allergies and Adverse Reactions Name Dates [...] Observations Planned Goals not documented Planned Encounters Pain Management Referral Interventions Provided Medication Changes* Methocarbamol 750 MG Oral Tablet - Start * Nabumetone 750 MG Oral Tablet - Start Instructions Name [...]
--- OUTSIDE RECORDS SUMMARY | 2019-12-08 21:41 | XMS REPORT | Summary of Care ---
Author Author PRABHAKAR Hendricks M.A. o Organization Unknown Address [facility] Phone Unavailable Care Team Providers Care Harness Maker Name Role Phone CHEL Gonzales, KARIN Unavailable Unavailable CHEL JONES [facility], KARIN Unavailable [...] Procedure Dates Details XRAY Spine lumbar discogram 67807 Date: 22-Jun-2019 CT Spine lumbar w contrast 69413 Date: 22-Jun-2019 Immunization Name Dates Details Immunizations [...] Start Labs/Procedures/Imaging* CT Spine lumbar w contrast 50455; To Be Done: 22 Jun 2019 * XRAY Spine lumbar discogram 97058; To Be Done: 22 Jun 2019 Instructions Name Dates Details Instructions not documented Encounters Appointment; KARIN MILLIGAN M.D. Encounter Diagnosis: Problem not documented On: 11-Mar-2018 10:00 Appointment; KARIN MILLIGAN M.D. Encounter Diagnosis: Problem not documented On: 3-Ravinder-2019 11:30 Appointment; KARIN MILLIGAN M.D. Encounter Diagnosis: [...]
[2019-12-08] MEDS ORDERED: CLONIDINE HCL 0.1 MG TAB PO ONE (22:00)
[2019-12-08 22:38] VITALS: BP 163/104
== END 2019-12-08 23:15 | disposition home or self-care (01) ==
LOC: ER 20:19
DX: T63.441A Toxic effect of venom of bees, accidental (unintentional), initial encounter (principal); Y92.008 Other place in unspecified non-institutional (private) residence as the place of occurrence of the external cause; I10 Essential (primary) hypertension; K21.9 Gastro-esophageal reflux disease without esophagitis; I25.2 Old myocardial infarction
CPT/HCPCS: 99283; J1200; J2930

== ENCOUNTER 2019-12-13 06:49 | Emergency (ER) | payer SELFPAY ==
[~2019-12-13] VITALS: Ht 177.8 cm; Wt 108.9 kg
[2019-12-13] MEDS ORDERED: HYDRALAZINE HCL 20 MG/ML VIAL IV STA (07:12)
--- OUTSIDE RECORDS SUMMARY | 2019-12-13 07:26 | XMS REPORT | Continuity of Care Document ---
Author Author [facility] t Organization [facility] Address [address] [place] [address] Phone Unavailable Care Team Providers Care Bakelite Molder Name Role Phone NO, PCP PCP Unavailable KARIN MILLIGAN M.D. Attphys Unavailable LILLY NAVA Attphys Unavailable Desean GAO Attphys Unavailable LILLY NAVA Admphys Unavailable Problems Condition Name Condition Details Condition Category Status Onset Date Resolution Date Last Treatment Date Treating Clinician Comments Source Lumbar back sprain, initial encounter Lumbar back sprain, in itial encounter Problem Active [facility] Herniated nucleus pulposus of lumbosacral region Herni ated nucleus pulposus of lumbosacral region Problem Active [facility] Contusion of ribs, left, subsequent encounter Contusio n of ribs, left, subsequent encounter Problem Active [facility] Hypertension Hypertension, uncontrolled Problem Active [facility] Unstable angina pectoris Unstable angina pectoris Problem Active [facility] 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 due to coronary arteriosclerosis Problem Active [facility] ST elevation myocardial infarction involving right coronary veronica ry Problem Active [facility] 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 [facility] Allergies, Adverse Reactions, Alerts Allergy Name Allergy Type Status Severity Reaction(s) Onset Date Inacti ve Date Treating Clinician Comments Source 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 Severe 2019-12-08 00:00:00 [facility] 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 Ordering Clinician Indication Dosage Frequency Signature (SIG) Comments Components Source tiZANidine HCl - 4 MG Oral Tablet tiZANidine HCl - 4 MG Oral Tablet 2019-06-22 00:00:00 Yes KARIN CUPIC M.D. Q0.3333D JAZIEL E 1 TABLET 3 TIMES DAILY NEEDED. [facility] Naproxen 500 MG Oral Tablet Naproxen 500 MG Oral Tablet 2019-06-22 00:00:00 Yes KARIN CUPIC M.D. TAKE ONE TABLET BY MOUTH TWICE A DAY AFTER MEALS [facility] Nabumetone 750 MG Oral Tablet Nabumetone 750 MG Oral Tablet 2018 00:00:00 Yes KARIN CUPIC M.D. TAKE 1 TABLET BY MOUTH TWICE DAILY AFTER A MEAL [facility] Methocarbamol 750 MG Oral Tablet Methocarbamol 750 MG Oral T ablet 2019-02-13 00:00:00 Yes KARIN CUPIC M.D. TAKE 1 TABLET BY MOUTH THREE TIMES DAILY [facility] Etodolac 400 MG Oral Tablet Etodolac 400 MG Oral Tablet 2018-10-27 00:00:00 Yes KARIN CUPIC M.D. Q0.5D TAKE 1 TABLET TWICE DAILY WITH MEALS. [facility] Baclofen 20 MG Oral Tablet Baclofen 20 MG Oral Tablet 2018-10-27 00:0 0:00 Yes KARIN CUPIC M.D. TAKE ONE TABLET BY MOUTH TWICE DA HOLDEN AFTER A MEAL [facility] Carvedilol (Coreg) 12.5 Mg TAB Carvedilol (Coreg) 12.5 Mg TA B 2018-07-21 09:23:00 Yes 12.5 Twice A Day [facility] Clopidogrel Bisulfate (Plavix) 75 Mg TABLET Clopidogre l Bisulfate (Plavix) 75 Mg TABLET 2018-07-21 09:23:00 Yes 75 Daily [facility] Cyclobenzaprine HCl - 10 MG Oral Tablet Cyclobenzaprine HCl - 10 MG Oral Tablet 2018-06-28 00:00:00 Yes KARIN MILLIGAN M.D. TAKE 1 TABLET BY MOUTH EVERY NIGHT AT BEDTIME [facility] Sulindac 200 MG Oral Tablet Sulindac 200 MG Oral Tablet 2018-06-28 00:00:00 Yes KARIN MILLIGAN M.D. Q0.5D TAKE 1 TABLET 2 TIMES DAILY AFT ER MEALS [facility] Etodolac 400 MG Oral Tablet Etodolac 400 MG Oral Tablet 2018-05-05 00:00:00 Yes KARIN MILLIGAN M.D. TAKE 1 TABLET BY MOUTH TWICE A DAY NEEDED [facility] Baclofen 20 MG Oral Tablet Baclofen 20 MG Oral Tablet 2018-05-05 00:0 0:00 Yes KARIN MILLIGAN M.D. 1 TAKE 1 TABLET BEDTIME [facility] Aspirin (Aspirin Ec) 81 Mg TABLET. Aspirin (Aspirin Ec) 81 Mg TABLET. 2018-03-29 07:08:00 Yes 81 Daily [facility] Atorvastatin Atorvastatin 2018-03-29 07:08:00 Yes 80 Bedtime [facility] Famotidine Famotidine 2018-03-29 07:08:00 Yes 20 Tram ry 12 Hours [facility] Lisinopril Lisinopril 2018-03-29 07:08:00 Yes 2.5 Licha ly [facility] Ticagrelor (Brilinta) 90 Mg TABLET Ticagrelor (Brilinta) 90 Mg TABLET 2018-03-29 07:08:00 2018-07-21 00:00:00 No 90 Every 12 Hours [facility] methylPREDNISolone 4 MG Oral Tablet Therapy Pack methy lPREDNISolone 4 MG Oral Tablet Therapy Pack 2018-03-11 00:00:00 Yes KARIN MILLIGAN M.D. USE DIRECTED [facility] Sulindac 200 MG Oral Tablet Sulindac 200 MG Oral Tablet 2018-03-11 00:00:00 Yes KARIN MILLIGAN M.D. TAKE ONE TA BLET BY MOUTH TWICE DAILY AFTER A MEAL AFTER MEDROL [facility] Cyclobenzaprine HCl - 10 MG Oral Tablet Cyclobenzaprine HCl - 10 MG Oral Tablet 2018-03-11 00:00:00 Yes KARIN MILLIGAN M.D. TAKE 1 TABLET AT BEDTIME NEEDED. [facility] Amlodipine Besylate Amlodipine Besylate Yes 10 Daily [facility] Lisinopril/Hydrochlorothiazide (Zestoretic 20-12.5 Mg Tablet) 1 Each TABLET Lisinopril/Hydrochlorothiazide (Zestoretic 20-12.5 Mg Tablet) 1 Each TABLET 2018-03-29 00:00:00 No 1 Daily [facility] Vital Signs Vital Name Observation Time Observation Value Comments Source Body Temperature 2019-12-08 22:38:00 98.2 [degF] [facility] Weight 2019-12-08 20:19:00 240 [lb_av] [facility] BMI (Body Mass Index) 2019-12-08 20:19:00 34.4 kg/m2 [facility] Procedures Procedure Date / Time Performed Performing Clinician Sourc e XRAY Spine lumbar discogram [id number] 2019-06-22 00:00:[address] [facility] CT Spine lumbar w contrast [id number] 2019-06-22 00:00:00 [facility] Physical Therapy 2018-03-11 00:00:00 [facility] MRI Spine lumbar wo contrast [id number] 2018-03-11 00:00:00 [facility] Plan of Care Planned Activity Planned Date Details Comments Source Instructions Allergic Reaction [facility] Encounters Start Date/Time End Date/Time Encounter Type Admission Type Attendi [facility] Emergency Department Facility Care Department Encounter ID Source 2019-12-08 20:19:00 2019-12-08 23:15:[address] [facility] [id number] [facility] dical [place] 2019-06-22 13:15:00 2019-06-22 13:15:00 Appointment; KARIN MILLIGAN M.D. CUPIC, ZORAN, M.D. [facility] Orthopedics [facility] [id number] [facility] 2019-02-13 13:45:00 2019-02-13 13:45:00 Appointment; KARIN MILLIGAN M.D. CUPIC, ZORAN M.D. [facility] [id number] [facility] 2018-12-15 10:15:00 2018-12-15 10:15:00 Appointment; KARIN MILLIGAN M.D. CUPIC, ZORAN, M.D. [facility] [id number] [facility] 2018-10-27 14:15:00 2018-10-27 14:15:00 Appointment; KARIN MILLIGAN M.D. CUPIC, ZORAN, M.D. [facility] [id number] [facility] 2018-08-09 10:45:00 2018-08-09 10:45:00 Appointment; KARIN MILLIGAN M.D. CUPIC, ZORAN, M.D. [facility] [id number] [facility] 2018-07-19 22:39:00 2018-07-21 12:21:00 Discharged Inpatient (obs) 1 LILLY NAVA [facility] [id number] [facility] 2018-06-28 13:30:00 2018-06-28 13:30:00 Appointment; KARIN MILLIGAN M.D. CUPIC, ZORAN, M.D. [facility] [id number] [facility] 2018-06-14 10:15:00 2018-06-14 10:15:00 Appointment; KARIN MILLIGAN M.D. CUPIC, ZORAN, M.D. [facility] [id number] [facility] 2018-05-05 11:30:00 2018-05-05 11:30:00 Appointment; KARIN MILLIGAN M.D. CUPIC, ZORAN, M.D. [facility] [id number] [facility] 2018-03-27 21:09:00 2018-03-29 10:56:00 Discharged Inpatient [facility] [id number] [facility] 2018-03-11 10:00:00 2018-03-11 10:00:00 Appointment; KARIN MILLIGAN M.D. CUPIC, ZORAN, M.D. [facility] [id number] [facility] 2018-01-24 07:47:00 2018-01-24 12:40:00 Departed Emergency Room 1 DAVON GAO [facility] [id number] [facility] Results Test Description Test Time Test Comments Results Result Comments Source Creatine Kinase MB 2018-07-20 16:10:00 Test Item Creatine Kinase MB (test code = 86992-7) 1.60 0-5.0 [facility]icsTroponin [id number] 16:10:00* Test Item Value Reference Range Interpretation Comments Troponin I (test code = KDW4525) 0.008 0-0.300 [facility] ClinicsCreatine Wpgfqh7076-30-73 15:57:00* Test Item Value Reference Range Interpretation Comments Creatine Kinase (test code = 2157-6) 151 30-200 [facility] ClinicsTriglycerides [id number] 07:21:00* Test Item Value Reference Range Interpretation Comments Triglycerides Level (test code = 2571-8) 281 0-149 H [facility]icsCholesterol Jnawv2107-07-45 07:21:00* Test Item Value Reference Range Interpretation Comments Cholesterol Level (test code = 2093-3) 107 0-199 Less than 200 mg/dL Low Eitc857 - 239 mg/dL Borderline Igls671 m g/dl and greater High Risk [facility] ClinicsLDL Bcqpbtayeka5426-11-90 07:21:00* Test Item Value Reference Range Interpretation Comments LDL Cholesterol (test code = 2089-1) 23 60-130 L [facility] ClinicsHDL Tnavrdekpmz3418-46-34 07:21:00* Test Item Value Reference Range Interpretation Comments HDL Cholesterol (test code = 2085-9) 28 40-60 L [facility]icsCholesterol/HDL Bscmj0426-42-40 07:21:00 * Test Item Value Reference Range Interpretation Comments Cholesterol/HDL Ratio (test code = 9830-1) 3.8 3.9-4.7 L [facility] ClinicsCHEST SINGLE (PORTABLE)2018-07-19 22:43:00 [facility] [address] [address] Patient Name: PRABHAKAR MOSQUERA II MR #: [id number] : 1970 Age/Sex: 48/M Req #: [id number] Adm Physician: LILLY NAVA MD Ordered by: ERIKA GAMBOA MD Report #: [id number] Location: [facility] Room/Bed: [address] [address] Procedure: [id number] DX/CHEST SINGLE (PORTABLE) Exam [...] COPY TO: ERIKA GAMBOA MD B-Type Natriuretic [id number] 22:05:00* Test Item Value Reference Range Interpretation Comments B-Type Natriuretic Peptide (test code = 61694-4) 12.9 0-100 [facility] ClinicsDifferential Total Cells Counted 2018-07-19 21:45:00* Test Item Value Reference Range Interpretation Comments Differential Total Cells Counted (test code = Differen tial Total Cells Counted) 100 [facility] ClinicsNeutrophils % (Manual)2018-07-19 21:45:00 * Test Item Value Reference Range Interpretation Comments Neutrophils % (Manual) (test code = 51198-8) 62 40-74 [facility] ClinicsLymphocytes % (Manual)2018-07-19 21:45:00 * Test Item Value Reference Range Interpretation Comments Lymphocytes % (Manual) (test code = 737-7) 27 19-48 [facility]icsMonocytes % (Manual)2018-07-19 21:45:00* Test Item Value Reference Range Interpretation Comments Monocytes % (Manual) (test code = 744-3) 4 3.4-9.0 [facility]icsEosinophils % (Manual)2018-07-19 21:45:00 * Test Item Value Reference Range Interpretation Comments Eosinophils % (Manual) (test code = 714-6) 5 0-7 [facility]icsBasophils % (Manual)2018-07-19 21:45:00* Test Item Value Reference Range Interpretation Comments Basophils % (Manual) (test code = 42308-9) 1 0-1.5 [facility] ClinicsReactive Xlgpfgbtayf6039-19-06 21:45:00* Test Item Value Reference Range Interpretation Comments Reactive Lymphocytes (test code = 59125-2) 1 [facility] ClinicsPlatelet Heaxewjg8740-88-08 21:45:00* Test Item Value Reference Range Interpretation Comments Platelet Estimate (test code = 84617-3) ADEQUATE [facility] ClinicsPlatelet Morphology Hthvmol7342-10-19 21:45:00* Test Item Value Reference Range Interpretation Comments Platelet Morphology Comment (test code = 65354-3) FEW GIANT [facility] ClinicsRed Cell Morphology Tpwqkwz7500-23-63 21:45:00* Test Item Value Reference Range Interpretation Comments Red Cell Morphology Comment (test code = 6742-1) NORMAL [facility]odium Ndqze2478-76-39 21:23:00* Test Item Value Reference Range Interpretation Comments Sodium Level (test code = 2951-2) 141 136-145 [facility] ClinicsPotassium Pwzay0158-90-95 21:23:00* Test Item Value Reference Range Interpretation Comments Potassium Level (test code = 2823-3) 4.0 3.5-5.1 [facility] ClinicsChloride Pvpgr2821-68-16 21:23:00* Test Item Value Reference Range Interpretation Comments Chloride Level (test code = 2075-0) 105 98-107 [facility] ClinicsCarbon Dioxide Rxnvg1174-10-34 21:23:00* Test Item Value Reference Range Interpretation Comments Carbon Dioxide Level (test code = 2028-9) 25 22-29 [facility] ClinicsAnion [id number] 21:23:00* Test Item Value Reference Range Interpretation Comments Anion Gap (test code = 05731-9) 15.0 8-16 [facility] ClinicsBlood Urea Ftucrbhr3423-02-85 21:23:00* Test Item Value Reference Range Interpretation Comments Blood Urea Nitrogen (test code = 3094-0) 13 7-26 [facility] ClinicsCreatinine2019-03-19 21:23:00* Test Item Value Reference Range Interpretation Comments Creatinine (test code = 2160-0) 1.15 0.72-1.25 [facility] ClinicsBUN/Creatinine Pplja0328-69-74 21:23:00* Test Item Value Reference Range Interpretation Comments BUN/Creatinine Ratio (test code = 3097-3) 11 6-25 [facility] ClinicsEstimat Glomerular Filtration Rate 2018-07-19 21:23:00* Test Item Value Reference Range Interpretation Comments Estimat Glomerular Filtration Rate (test code = 590902437) > 60 >60 Ranges were taken from the National Kidney Disease Education Program and the [facility] literature.Reference ranges:60 or greater: Lhltmq81-48 ( for 3 consecutive months): Chronic kidney disease 15 or less: Kidney failureEast [facility] Hospital and ClinicsGlucose Msjyj2190-98-17 21:23:00* Test Item Value Reference Range Interpretation Comments Glucose Level (test code = IFO3534) 94 74-118 [facility] ClinicsCalcium Mfjum8845-58-58 21:23:00* Test Item Value Reference Range Interpretation Comments Calcium Level (test code = 60522-2) 9.8 8.4-10.2 [facility] ClinicsTotal Dyjctqogm0083-44-84 21:23:00* Test Item Value Reference Range Interpretation Comments Total Bilirubin (test code = 1975-2) 0.8 0.2-1.2 [facility] ClinicsAspartate Amino Transf (AST/SGOT) 2018-07-19 21:23:00* Test Item Value Reference Range Interpretation Comments Aspartate Amino Transf (AST/SGOT) (test code = Aspartate Amino Transf (AST/SGOT)) 16 5-34 [facility] ClinicsAlanine Aminotransferase (ALT/SGPT) 2018-07-19 21:23:00* Test Item Value Reference Range Interpretation Comments Alanine Aminotransferase (ALT/SGPT) (test code = 1742-6) 19 0-55 [facility] ClinicsTotal Fvqjvpg5741-83-16 21:23:00* Test Item Value Reference Range Interpretation Comments Total Protein (test code = 2885-2) 7.8 6.5-8.1 [facility] ClinicsAlbumin2019-03-19 21:23:00* Test Item Value Reference Range Interpretation Comments Albumin (test code = 1751-7) 4.3 3.5-5.0 [facility] ClinicsGlobulin2019-03-19 21:23:00* Test Item Value Reference Range Interpretation Comments Globulin (test code = 30584-2) 3.5 2.3-3.5 [facility] ClinicsAlbumin/Globulin [id number] 21:23:00 * Test Item Value Reference Range Interpretation Comments Albumin/Globulin Ratio (test code = 1759-0) 1.2 0.8-2.0 [facility] ClinicsAlkaline Zirvsbqvutt5270-71-94 21:23:00* Test Item Value Reference Range Interpretation Comments Alkaline Phosphatase (test code = 6768-6) 79 40-150 [facility] ClinicsProthrombin Unnw8374-16-84 21:16:00* Test Item Value Reference Range Interpretation Comments Prothrombin Time (test code = 5902-2) 12.1 11.9-14.5 [facility] ClinicsProthromb Time International Ratio 2018-07-19 21:16:00* Test Item Value Reference Range Interpretation Comments Prothromb Time International Ratio (test code = 6301-6) 0.85 Oral Anticoagulant Therapy INR Values:1. Low Intensity Therapy 1.5 - 2.02 . Moderate Intensity Therapy 2.0 - 3.03. High Intensity Therapy(1) 2.5 - 3. 54. High Intensity Therapy(2) 3.0 - 4.05. Panic Value INR > 5.0 [facility] ClinicsActivated Partial Thromboplast Time 2018-07-19 21:16:00* Test Item Value Reference Range Interpretation Comments Activated Partial Thromboplast Time (test code = 91088-6) 32.6 23.8-35.5 [facility] ClinicsWhite Blood Ntxdk8762-33-90 21:08:00* Test Item Value Reference Range Interpretation Comments White Blood Count (test code = 6690-2) 12.41 4.8-10.8 H [facility] ClinicsRed Blood [id number] 21:08:00* Test Item Value Reference Range Interpretation Comments Red Blood Count (test code = 789-8) 4.96 4.3-5.7 [facility] ClinicsHemoglobin2019-03-19 21:08:00* Test Item Value Reference Range Interpretation Comments Hemoglobin (test code = 35709-3) 15.1 14.0-18.0 [facility] ClinicsHematocrit2019-03-19 21:08:00* Test Item Value Reference Range Interpretation Comments Hematocrit (test code = 4544-3) 44.8 38.2-49.6 [facility] ClinicsMean Corpuscular Pmmnvf9885-75-56 21:08:00* Test Item Value Reference Range Interpretation Comments Mean Corpuscular Volume (test code = 787-2) 90.3 81-99 [facility] ClinicsMean Corpuscular Ctymunhaxc4040-17-12 21:08:00* Test Item Value Reference Range Interpretation Comments Mean Corpuscular Hemoglobin (test code = 785-6) 30.4 28-32 [facility] ClinicsMean Corpuscular Hemoglobin Concent 2018-07-19 21:08:00* Test Item Value Reference Range Interpretation Comments Mean Corpuscular Hemoglobin Concent (test code = 786-4) 33.7 31-35 [facility] ClinicsRed Cell Distribution Djonq1692-43-49 21:08:00* Test Item Value Reference Range Interpretation Comments Red Cell Distribution Width (test code = 69761-5) 13.4 11.7 -14.4 [facility] ClinicsPlatelet Fhqsx3916-13-06 21:08:00* Test Item Value Reference Range Interpretation Comments Platelet Count (test code = 777-3) 312 140-360 [facility] Campusodium Klizq3778-59-85 05:34:00* Test Item Value Reference Range Interpretation Comments Sodium Level (test code = 2951-2) 138 136-145 [facility] ClinicsPotassium Tprod5587-53-79 05:34:00* Test Item Value Reference Range Interpretation Comments Potassium Level (test code = 2823-3) 4.1 3.5-5.1 [facility] ClinicsChloride Ligtc6232-15-24 05:34:00* Test Item Value Reference Range Interpretation Comments Chloride Level (test code = 2075-0) 105 98-107 [facility] ClinicsCarbon Dioxide Hyjnk9892-91-48 05:34:00* Test Item Value Reference Range Interpretation Comments Carbon Dioxide Level (test code = 2028-9) 26 22-29 [facility] ClinicsAnion Omf9299-03-47 05:34:00* Test Item Value Reference Range Interpretation Comments Anion Gap (test code = 08693-2) 11.1 8-16 [facility] ClinicsBlood Urea Gjwujokp3859-30-98 05:34:00* Test Item Value Reference Range Interpretation Comments Blood Urea Nitrogen (test code = 3094-0) 15 7-26 [facility] ClinicsCreatinine2018-11-27 05:34:00* Test Item Value Reference Range Interpretation Comments Creatinine (test code = 2160-0) 1.09 0.72-1.25 [facility] ClinicsBUN/Creatinine Ouxtg9324-61-63 05:34:00* Test Item Value Reference Range Interpretation Comments BUN/Creatinine Ratio (test code = 3097-3) 14 6-25 [facility] ClinicsEstimat Glomerular Filtration Rate 2018-03-29 05:34:00* Test Item Value Reference Range Interpretation Comments Estimat Glomerular Filtration Rate (test code = 778668304) > 60 >60 Ranges were taken from the National Kidney Disease Education Program and the [facility] Kidney Foundation literature.Reference ranges:60 or greater: Pveqyq10-14 ( for 3 consecutive months): Chronic kidney disease 15 or less: Kidney failureEast [facility] Hospital and ClinicsGlucose Btvfs5269-25-90 05:34:00* Test Item Value Reference Range Interpretation Comments Glucose Level (test code = STO7337) 98 74-118 [facility] ClinicsCalcium Affka3724-29-59 05:34:00* Test Item Value Reference Range Interpretation Comments Calcium Level (test code = 91476-7) 9.3 8.4-10.2 [facility] ClinicsTotal Xdekldapg1346-61-01 05:34:00* Test Item Value Reference Range Interpretation Comments Total Bilirubin (test code = 1975-2) 0.9 0.2-1.2 [facility] ClinicsAspartate Amino Transf (AST/SGOT) 2018-03-29 05:34:00* Test Item Value Reference Range Interpretation Comments Aspartate Amino Transf (AST/SGOT) (test code = Aspartate Amino Transf (AST/SGOT)) 53 5-34 H [facility] ClinicsAlanine Aminotransferase (ALT/SGPT) 2018-03-29 05:34:00* Test Item Value Reference Range Interpretation Comments Alanine Aminotransferase (ALT/SGPT) (test code = 1742-6) 36 0-55 [facility] ClinicsTotal Cubuuzs7327-85-30 05:34:00* Test Item Value Reference Range Interpretation Comments Total Protein (test code = 2885-2) 6.4 6.5-8.1 L [facility] ClinicsAlbumin2018-11-27 05:34:00* Test Item Value Reference Range Interpretation Comments Albumin (test code = 1751-7) 3.4 3.5-5.0 L [facility] ClinicsGlobulin2018-11-27 05:34:00* Test Item Value Reference Range Interpretation Comments Globulin (test code = 41278-4) 3.0 2.3-3.5 [facility] ClinicsAlbumin/Globulin Dubzl6568-19-04 05:34:00 * Test Item Value Reference Range Interpretation Comments Albumin/Globulin Ratio (test code = 1759-0) 1.1 0.8-2.0 [facility] ClinicsAlkaline Idamgmwwuvx4020-29-88 05:34:00* Test Item Value Reference Range Interpretation Comments Alkaline Phosphatase (test code = 6768-6) 58 40-150 [facility] ClinicsWhite Blood Ebxep1416-25-65 04:58:00* Test Item Value Reference Range Interpretation Comments White Blood Count (test code = 6690-2) 14.81 4.8-10.8 H [facility] ClinicsRed Blood Wwbch9966-01-61 04:58:00* Test Item Value Reference Range Interpretation Comments Red Blood Count (test code = 789-8) 4.47 4.3-5.7 [facility] [facility]icsHemoglobin2018-[facility] 04:58:00* Test Item Value Reference Range Interpretation Comments Hemoglobin (test code = 56975-9) 14.0 14.0-18.0 [facility]icsHematocrit2018-11-27 04:58:00* Test Item Value Reference Range Interpretation Comments Hematocrit (test code = 4544-3) 41.4 38.2-49.6 [facility] ClinicsMean Corpuscular Cbhgvc0908-77-65 04:58:00* Test Item Value Reference Range Interpretation Comments Mean Corpuscular Volume (test code = 787-2) 92.6 81-99 [facility] ClinicsMean Corpuscular Riykagtfgj0205-63-94 04:58:00* Test Item Value Reference Range Interpretation Comments Mean Corpuscular Hemoglobin (test code = 785-6) 31.3 28-32 [facility] ClinicsMean Corpuscular Hemoglobin Concent 2018-03-29 04:58:00* Test Item Value Reference Range Interpretation Comments Mean Corpuscular Hemoglobin Concent (test code = 786-4) 33.8 31-35 [facility] ClinicsRed Cell Distribution Bulsf4677-28-45 04:58:00* Test Item Value Reference Range Interpretation Comments Red Cell Distribution Width (test code = 03639-3) 14.0 11.7 -14.4 [facility] ClinicsPlatelet Waejf7032-31-12 04:58:00* Test Item Value Reference Range Interpretation Comments Platelet Count (test code = 777-3) 293 140-360 [facility] ClinicsNeutrophils (%) (Auto)2018-03-29 04:58:00 * Test Item Value Reference Range Interpretation Comments Neutrophils (%) (Auto) (test code = 49796-2) 65.6 38.7-80.0 [facility] ClinicsLymphocytes (%) (Auto)2018-03-29 04:58:00 * Test Item Value Reference Range Interpretation Comments Lymphocytes (%) (Auto) (test code = 736-9) 23.5 18.0-39.1 [facility] ClinicsMonocytes (%) (Auto)2018-03-29 04:58:00* Test Item Value Reference Range Interpretation Comments Monocytes (%) (Auto) (test code = 5905-5) 7.6 4.4-11.3 [facility]icsEosinophils (%) (Auto)2018-03-29 04:58:00 * Test Item Value Reference Range Interpretation Comments Eosinophils (%) (Auto) (test code = 713-8) 2.3 0.0-6.0 [facility] ClinicsBasophils (%) (Auto)2018-03-29 04:58:00* Test Item Value Reference Range Interpretation Comments Basophils (%) (Auto) (test code = 706-2) 0.5 0.0-1.0 [facility] ClinicsIM GRANULOCYTES %2018-03-29 04:58:00* Test Item Value Reference Range Interpretation Comments IM GRANULOCYTES % (test code = IM GRANULOCYTES %) 0.5 0.0- 1.0 [facility] ClinicsNeutrophils # (Auto)2018-03-29 04:58:00* Test Item Value Reference Range Interpretation Comments Neutrophils # (Auto) (test code = 751-8) 9.7 2.1-6.9 H [facility] ClinicsLymphocytes # (Auto)2018-03-29 04:58:00* Test Item Value Reference Range Interpretation Comments Lymphocytes # (Auto) (test code = 54676-6) 3.5 1.0-3.2 H [facility] ClinicsMonocytes # (Auto)2018-03-29 04:58:00* Test Item Value Reference Range Interpretation Comments Monocytes # (Auto) (test code = 742-7) 1.1 0.2-0.8 H [facility] ClinicsEosinophils # (Auto)2018-03-29 04:58:00* Test Item Value Reference Range Interpretation Comments Eosinophils # (Auto) (test code = 711-2) 0.3 0.0-0.4 [facility] ClinicsBasophils # (Auto)2018-03-29 04:58:00* Test Item Value Reference Range Interpretation Comments Basophils # (Auto) (test code = 704-7) 0.1 0.0-0.1 [facility] ClinicsAbsolute Immature Granulocyte (auto 2018-03-29 04:58:00* Test Item Value Reference Range Interpretation Comments Absolute Immature Granulocyte (auto (dorota t code = Absolute Immature Granulocyte (auto) 0.08 0-0.1 [facility] ClinicsNeutrophils (%) (Auto)2018-03-29 04:58:00 * Test Item Value Reference Range Interpretation Comments Neutrophils (%) (Auto) (test code = 96254-6) 65.6 38.7-80.0 [facility] ClinicsLymphocytes (%) (Auto)2018-03-29 04:58:00 * Test Item Value Reference Range Interpretation Comments Lymphocytes (%) (Auto) (test code = 736-9) 23.5 18.0-39.1 [facility] ClinicsMonocytes (%) (Auto)2018-03-29 04:58:00* Test Item Value Reference Range Interpretation Comments Monocytes (%) (Auto) (test code = 5905-5) 7.6 4.4-11.3 [facility] ClinicsEosinophils (%) (Auto)2018-03-29 04:58:00 * Test Item Value Reference Range Interpretation Comments Eosinophils (%) (Auto) (test code = 713-8) 2.3 0.0-6.0 [facility] ClinicsBasophils (%) (Auto)2018-03-29 04:58:00* Test Item Value Reference Range Interpretation Comments Basophils (%) (Auto) (test code = 706-2) 0.5 0.0-1.0 [facility] ClinicsIM GRANULOCYTES %2018-03-29 04:58:00* Test Item Value Reference Range Interpretation Comments IM GRANULOCYTES % (test code = IM GRANULOCYTES %) 0.5 0.0- 1.0 [facility] ClinicsNeutrophils # (Auto)2018-03-29 04:58:00* Test Item Value Reference Range Interpretation Comments Neutrophils # (Auto) (test code = 751-8) 9.7 2.1-6.9 [facility] ClinicsLymphocytes # (Auto)2018-03-29 04:58:00* Test Item Value Reference Range Interpretation Comments Lymphocytes # (Auto) (test code = 56871-7) 3.5 1.0-3.2 [facility] ClinicsMonocytes # (Auto)2018-03-29 04:58:00* Test Item Value Reference Range Interpretation Comments Monocytes # (Auto) (test code = 742-7) 1.1 0.2-0.8 [facility] ClinicsEosinophils # (Auto)2018-03-29 04:58:00* Test Item Value Reference Range Interpretation Comments Eosinophils # (Auto) (test code = 711-2) 0.3 0.0-0.4 [facility] ClinicsBasophils # (Auto)2018-03-29 04:58:00* Test Item Value Reference Range Interpretation Comments Basophils # (Auto) (test code = 704-7) 0.1 0.0-0.1 [facility] ClinicsAbsolute Immature Granulocyte (auto 2018-03-29 04:58:00* Test Item Value Reference Range Interpretation Comments Absolute Immature Granulocyte (auto (dorota t code = Absolute Immature Granulocyte (auto) 0.08 0-0.1 [facility] ClinicsCreatine Kinase [id number] 13:07:00* Test Item Value Reference Range Interpretation Comments Creatine Kinase MB (test code = 45406-8) 104.40 0-5.0 H [facility] ClinicsTroponin [id number] 13:07:00* Test Item Value Reference Range Interpretation Comments Troponin I (test code = DOY4706) 39.531 0-0.300 H Elevated result called to ANIL SYLVESTER RN at 1306 on 03/28/18 by Marissa Carrillo. [facility] ClinicsCreatine Eatase7654-12-48 13:01:00* Test Item Value Reference Range Interpretation Comments Creatine Kinase (test code = 2157-6) 1241 30-200 [facility] ClinicsTriglycerides Vhxye6378-09-79 06:11:00* Test Item Value Reference Range Interpretation Comments Triglycerides Level (test code = 2571-8) 273 0-149 [facility] ClinicsCholesterol Mtete7913-67-33 06:11:00* Test Item Value Reference Range Interpretation Comments Cholesterol Level (test code = 2093-3) 170 0-199 Less than 200 mg/dL Low Zcjc550 - 239 mg/dL Borderline Tapd128 m g/dl and greater High Risk [facility] ClinicsLDL Mujecczhijs5826-22-11 06:11:00* Test Item Value Reference Range Interpretation Comments LDL Cholesterol (test code = 2089-1) 83 60-130 [facility] ClinicsHDL Lceregdbyph8056-44-40 06:11:00* Test Item Value Reference Range Interpretation Comments HDL Cholesterol (test code = 2085-9) 32 40-60 L [facility] ClinicsCholesterol/HDL Lkdvr7656-50-16 06:11:00 * Test Item Value Reference Range Interpretation Comments Cholesterol/HDL Ratio (test code = 9830-1) 5.3 3.9-4.7 [facility] ClinicsHemoglobin A1c Denqpor4079-33-17 05:35:00 * Test Item Value Reference Range Interpretation Comments Hemoglobin A1c Percent (test code = Hemoglobin A1c Percent) 5.5 4.0-7.0 [facility] ClinicsHemoglobin A1c Ihgmocc4463-84-07 05:35:00 * Test Item Value Reference Range Interpretation Comments Hemoglobin A1c Percent (test code = Hemoglobin A1c Percent) 5.5 4.0-7.0 [facility] ClinicsDifferential Total Cells Counted 2018-03-27 22:27:00* Test Item Value Reference Range Interpretation Comments Differential Total Cells Counted (test code = Differen tial Total Cells Counted) 100 [facility] ClinicsNeutrophils % (Manual)2018-03-27 22:27:00 * Test Item Value Reference Range Interpretation Comments Neutrophils % (Manual) (test code = 37772-2) 68 40-74 [facility] ClinicsLymphocytes % (Manual)2018-03-27 22:27:00 * Test Item Value Reference Range Interpretation Comments Lymphocytes % (Manual) (test code = 737-7) 22 19-48 [facility]icsMonocytes % (Manual)2018-03-27 22:27:00* Test Item Value Reference Range Interpretation Comments Monocytes % (Manual) (test code = 744-3) 6 3.4-9.0 [facility]icsEosinophils % (Manual)2018-03-27 22:27:00 * Test Item Value Reference Range Interpretation Comments Eosinophils % (Manual) (test code = 714-6) 3 0-7 [facility] ClinicsBasophils % (Manual)2018-03-27 22:27:00* Test Item Value Reference Range Interpretation Comments Basophils % (Manual) (test code = 33027-4) 1 0-1.5 [facility] ClinicsPlatelet Sgwnwcbq8285-28-74 22:27:00* Test Item Value Reference Range Interpretation Comments Platelet Estimate (test code = 62703-2) ADEQUATE [facility] ClinicsPlatelet Morphology Qsypwob0025-09-49 22:27:00* Test Item Value Reference Range Interpretation Comments Platelet Morphology Comment (test code = 98911-4) FEW LARGE [facility] ClinicsRed Cell Morphology Xppmmlk6141-55-39 22:27:00* Test Item Value Reference Range Interpretation Comments Red Cell Morphology Comment (test code = 6742-1) NORMAL [facility] ClinicsProthrombin Ldxh2754-72-52 20:52:00* Test Item Value Reference Range Interpretation Comments Prothrombin Time (test code = 5902-2) 11.9 11.9-14.5 [facility] ClinicsProthromb Time International Ratio 2018-03-27 20:52:00* Test Item Value Reference Range Interpretation Comments Prothromb Time International Ratio (test code = 6301-6) 0.80 Oral Anticoagulant Therapy INR Values:1. Low Intensity Therapy 1.5 - 2.02 . Moderate Intensity Therapy 2.0 - 3.03. High Intensity Therapy(1) 2.5 - 3. 54. High Intensity Therapy(2) 3.0 - 4.05. Panic Value INR > 5.0 [facility] ClinicsWhite Blood Plsdr5776-29-58 09:19:00* Test Item Value Reference Range Interpretation Comments White Blood Count (test code = 6690-2) 10.79 4.8-10.8 [facility] ClinicsRed Blood Utupl0384-33-02 09:19:00* Test Item Value Reference Range Interpretation Comments Red Blood Count (test code = 789-8) 5.34 4.3-5.7 [facility] ClinicsHemoglobin2018-09-24 09:19:00* Test Item Value Reference Range Interpretation Comments Hemoglobin (test code = 29566-7) 16.7 14.0-18.0 [facility] ClinicsHematocrit2018-09-24 09:19:00* Test Item Value Reference Range Interpretation Comments Hematocrit (test code = 4544-3) 48.3 38.2-49.6 [facility] ClinicsMean Corpuscular Oxdidk3743-00-78 09:19:00* Test Item Value Reference Range Interpretation Comments Mean Corpuscular Volume (test code = 787-2) 90.4 81-99 [facility] ClinicsMean Corpuscular Vojjtwuyms4776-08-39 09:19:00* Test Item Value Reference Range Interpretation Comments Mean Corpuscular Hemoglobin (test code = 785-6) 31.3 28-32 [facility] ClinicsMean Corpuscular Hemoglobin Concent 2018-01-24 09:19:00* Test Item Value Reference Range Interpretation Comments Mean Corpuscular Hemoglobin Concent (test code = 786-4) 34.6 31-35 [facility] ClinicsRed Cell Distribution Tscna0401-29-96 09:19:00* Test Item Value Reference Range Interpretation Comments Red Cell Distribution Width (test code = 24516-2) 13.1 11.7 -14.4 [facility] ClinicsPlatelet Tfioa3335-21-40 09:19:00* Test Item Value Reference Range Interpretation Comments Platelet Count (test code = 777-3) 301 140-360 [facility] ClinicsNeutrophils (%) (Auto)2018-01-24 09:19:00 * Test Item Value Reference Range Interpretation Comments Neutrophils (%) (Auto) (test code = 16124-8) 57.4 38.7-80.0 [facility] ClinicsLymphocytes (%) (Auto)2018-01-24 09:19:00 * Test Item Value Reference Range Interpretation Comments Lymphocytes (%) (Auto) (test code = 736-9) 31.1 18.0-39.1 [facility]icsMonocytes (%) (Auto)2018-01-24 09:19:00* Test Item Value Reference Range Interpretation Comments Monocytes (%) (Auto) (test code = 5905-5) 5.7 4.4-11.3 [facility] ClinicsEosinophils (%) (Auto)2018-01-24 09:19:00 * Test Item Value Reference Range Interpretation Comments Eosinophils (%) (Auto) (test code = 713-8) 4.3 0.0-6.0 [facility] ClinicsBasophils (%) (Auto)2018-01-24 09:19:00* Test Item Value Reference Range Interpretation Comments Basophils (%) (Auto) (test code = 706-2) 1.1 0.0-1.0 H [facility] ClinicsIM GRANULOCYTES %2018-01-24 09:19:00* Test Item Value Reference Range Interpretation Comments IM GRANULOCYTES % (test code = IM GRANULOCYTES %) 0.4 0.0- 1.0 [facility] ClinicsNeutrophils # (Auto)2018-01-24 09:19:00* Test Item Value Reference Range Interpretation Comments Neutrophils # (Auto) (test code = 751-8) 6.2 2.1-6.9 [facility] ClinicsLymphocytes # (Auto)2018-01-24 09:19:00* Test Item Value Reference Range Interpretation Comments Lymphocytes # (Auto) (test code = 59825-7) 3.4 1.0-3.2 H [facility]icsMonocytes # (Auto)2018-01-24 09:19:00* Test Item Value Reference Range Interpretation Comments Monocytes # (Auto) (test code = 742-7) 0.6 0.2-0.8 [facility]icsEosinophils # (Auto)2018-01-24 09:19:00* Test Item Value Reference Range Interpretation Comments Eosinophils # (Auto) (test code = 711-2) 0.5 0.0-0.4 H [facility]icsBasophils # (Auto)2018-01-24 09:19:00* Test Item Value Reference Range Interpretation Comments Basophils # (Auto) (test code = 704-7) 0.1 0.0-0.1 [facility] ClinicsAbsolute Immature Granulocyte (auto 2018-01-24 09:19:00* Test Item Value Reference Range Interpretation Comments Absolute Immature Granulocyte (auto (dorota t code = Absolute Immature Granulocyte (auto) 0.04 0-0.1 [facility] [place] [facility] Campusodium Hjayx6819-11-42 09:04:00* Test Item Value Reference Range Interpretation Comments Sodium Level (test code = 2951-2) 136 136-145 [facility] ClinicsPotassium Ouxoy4753-64-70 09:04:00* Test Item Value Reference Range Interpretation Comments Potassium Level (test code = 2823-3) 4.4 3.5-5.1 [facility] ClinicsChloride Kjkho2234-49-66 09:04:00* Test Item Value Reference Range Interpretation Comments Chloride Level (test code = 2075-0) 101 98-107 [facility] ClinicsCarbon Dioxide Tgijx1433-03-57 09:04:00* Test Item Value Reference Range Interpretation Comments Carbon Dioxide Level (test code = 2028-9) 24 22-29 [facility] ClinicsAnion Ysm1408-89-30 09:04:00* Test Item Value Reference Range Interpretation Comments Anion Gap (test code = 45849-6) 15.4 8-16 [facility] ClinicsBlood Urea Ocvpqbzw8086-72-26 09:04:00* Test Item Value Reference Range Interpretation Comments Blood Urea Nitrogen (test code = 3094-0) 14 7-26 [facility] ClinicsCreatinine2018-09-24 09:04:00* Test Item Value Reference Range Interpretation Comments Creatinine (test code = 2160-0) 1.33 0.72-1.25 H [facility] ClinicsBUN/Creatinine Ftvoy1582-96-93 09:04:00* Test Item Value Reference Range Interpretation Comments BUN/Creatinine Ratio (test code = 3097-3) 11 6-25 [facility] ClinicsEstimat Glomerular Filtration Rate 2018-01-24 09:04:00* Test Item Value Reference Range Interpretation Comments Estimat Glomerular Filtration Rate (test code = 367008277) 58 >60 L Ranges were taken from the National Kidney Disease Education Program and the [facility] literature.Reference ranges:60 or greater: Ypbefm33-30 ( for 3 consecutive months): Chronic kidney disease 15 or less: Kidney failureEast [facility] Hospital and ClinicsGlucose Pknqy4371-25-98 09:04:00* Test Item Value Reference Range Interpretation Comments Glucose Level (test code = MGV9194) 104 74-118 [facility] ClinicsCalcium Sxtne2392-89-55 09:04:00* Test Item Value Reference Range Interpretation Comments Calcium Level (test code = 17057-5) 10.3 8.4-10.2 H [facility] ClinicsTotal Dgmuolosy3679-12-93 09:04:00* Test Item Value Reference Range Interpretation Comments Total Bilirubin (test code = 1975-2) 0.5 0.2-1.2 [facility] ClinicsAspartate Amino Transf (AST/SGOT) 2018-01-24 09:04:00* Test Item Value Reference Range Interpretation Comments Aspartate Amino Transf (AST/SGOT) (test code = Aspartate Amino Transf (AST/SGOT)) 16 5-34 [facility] ClinicsAlanine Aminotransferase (ALT/SGPT) 2018-01-24 09:04:00* Test Item Value Reference Range Interpretation Comments Alanine Aminotransferase (ALT/SGPT) (test code = 1742-6) 23 0-55 [facility] ClinicsTotal Wvzffhh3564-30-66 09:04:00* Test Item Value Reference Range Interpretation Comments Total Protein (test code = 2885-2) 7.6 6.5-8.1 [facility] ClinicsAlbumin2018-09-24 09:04:00* Test Item Value Reference Range Interpretation Comments Albumin (test code = 1751-7) 4.2 3.5-5.0 [facility] ClinicsGlobulin2018-09-24 09:04:00* Test Item Value Reference Range Interpretation Comments Globulin (test code = 74386-0) 3.4 2.3-3.5 [facility] ClinicsAlbumin/Globulin Bkshr2572-41-25 09:04:00 * Test Item Value Reference Range Interpretation Comments Albumin/Globulin Ratio (test code = 1759-0) 1.2 0.8-2.0 [facility] ClinicsAlkaline Rellwxzzuow3728-06-41 09:04:00* Test Item Value Reference Range Interpretation Comments Alkaline Phosphatase (test code = 6768-6) 65 40-150 [facility] ClinicsCT BRAIN VC6063-47-69 08:55:00 [facility] [address] [place], [place] [address] Patient Name: PRABHAKAR MOSQUERA II MR #: [id number] : 1970 Age/Sex: 48/M Req #: [id number] Adm Ph ysician: Ordered by: MITZY ZHU NP Report #: [id number] Location: ER Room/Bed: Procedure: [id number] CT/CT BRAIN WO Ex am Date: 01/24/18 Exam Time: 0830 REPORT STATUS : Signed EXAMINATION: Head CT [...] Parenchyma: 1. No abnormal densities. 2. No mas s or hemorrhage. No CT evidence of acute [...]
[2019-12-13 07:28] LABS: BASOPHILS # (AUTO) 0.1 (0.0-0.1); BASOPHILS % 0.9 % (0.0-1.0); EOSINOPHILS # (AUTO) 0.5 (0.0-0.4); EOSINOPHILS % 3.5 % (0.0-6.0); HEMATOCRIT 48.6 % (38.2-49.6); HEMOGLOBIN 16.6 g/dL (14.0-18.0); LYMPHOCYTES # (AUTO) 4.6 (1.0-3.2); LYMPHOCYTES % 35.7 % (18.0-39.1); MEAN CORPUSCULAR HEMOGLOBIN 30.8 pg (28-32); MEAN CORPUSCULAR HGB CONC 34.2 g/dL (31-35); MEAN CORPUSCULAR VOLUME 90.2 fL (81-99); MONOCYTES # (AUTO) 0.7 (0.2-0.8); MONOCYTES % 5.4 % (4.4-11.3); NEUTROPHILS # (AUTO) 6.9 (2.1-6.9); PLATELET COUNT 363 x10e3/uL (140-360); RED BLOOD COUNT 5.39 x10e6/uL (4.3-5.7); RED CELL DISTRIBUTION WIDTH 13.1 % (11.7-14.4)
[2019-12-13 07:38] LABS: INR 0.81; PROTHROMBIN TIME 11.6 seconds (11.9-14.5)
[2019-12-13 07:39] LABS: PARTIAL THROMBOPLASTIN TIME 31.7 seconds (23.8-35.5)
[2019-12-13 07:49] LABS: ALANINE AMINOTRANSFERASE 27 IU/L (0-55); ALBUMIN 4.1 g/dL (3.5-5.0); ALBUMIN/GLOBULIN RATIO 1.2 (0.8-2.0); ALKALINE PHOSPHATASE 68 IU/L (40-150); ANION GAP 15.5 mmol/L (8-16); BLOOD UREA NITROGEN 11 mg/dL (7-26); BUN/CREATININE RATIO 9 (6-25); CALCIUM 9.9 mg/dL (8.4-10.2); CARBON DIOXIDE 23 mmol/L (22-29); CHLORIDE 103 mmol/L (98-107); CREATINE KINASE 81 IU/L (30-200); CREATININE, SERUM 1.19 mg/dL (0.72-1.25); EST GLOMERULAR FILTRATION RATE > 60 ML/MIN (60-); GLUCOSE 101 mg/dL (74-118); POTASSIUM 4.5 mmol/L (3.5-5.1); SODIUM 137 mmol/L (136-145)
--- NOTE | 2019-12-13 08:04 | Diagnostic Imaging Report ---
EXAMINATION: Head CT HISTORY: Headache associated to elevated blood pressure. COMPARISON: Head CT 01/24/2018 TECHNIQUE: Helical axial images of the head were obtained. Reformatted coronal and sagittal images from the axial data. Dose modulation, iterative reconstruction, and/or weight based adjustment of the mA/kV was utilized to reduce the radiation dose to as low as reasonably achievable. Image quality: Motion/streaking artifact limits the evaluation of the skull base and posterior cranial fossa. FINDINGS: Parenchyma: 1. No abnormal densities. 2. No mass or hemorrhage. No CT evidence of acute territorial vascular insult. Extra-axial spaces:No abnormal density. No extra-axial fluid collections Brain volume: Normal for age. Ventricles: No hydrocephalus or displacement. Arteries: No density suggestive of thrombus. Dural sinuses: No abnormal density. Foramen magnum: No mass, Chiari malformation, or basilar invagination. Sella: No obvious mass. Paranasal/mastoid sinuses: Imaged portions unremarkable. Skull/Scalp: No lytic or blastic lesions. No fractures. IMPRESSION: No intracranial abnormalities, particularly no hemorrhage, unchanged compared to head CT of 01/20/2014. Signed by: Dr. Jessica Chambers M.D. on 12/13/2019 8:00 AM
[2019-12-13 08:10] LABS: AMPHETAMINES SCREEN,URINE NEGATIVE (NEGATIVE); PHENCYCLIDINE SCREEN,URINE NEGATIVE (NEGATIVE)
[2019-12-13 08:11] LABS: BENZODIAZEPINES SCREEN,URINE NEGATIVE (NEGATIVE)
[2019-12-13 08:14] LABS: COLOR,URINE YELLOW (YELLOW)
[2019-12-13 08:15] LABS: BILIRUBIN,URINE NEGATIVE (NEGATIVE); CLARITY,URINE CLEAR (CLEAR); KETONES,URINE NEGATIVE (NEGATIVE); LEUKOCYTE ESTERASE ,URINE NEGATIVE (NEGATIVE); NITRITE,URINE NEGATIVE (NEGATIVE); PROTEIN,URINE DIPSTICK NEGATIVE (NEGATIVE); URINE UROBILINOGEN 0.2 mg/dL (0.2 - 1)
[2019-12-13 08:36] LABS: BACTERIA,URINE RARE /HPF; EPITHELIAL CELLS,URINE RARE /LPF; WBC,URINE (MAN) 0-5 /HPF (0-5)
--- NOTE | 2019-12-13 08:36 | Diagnostic Imaging Report ---
EXAMINATION: CHEST SINGLE (PORTABLE) INDICATION: Hypertension, headache COMPARISON: None FINDINGS: LINES/TUBES:None LUNGS:The lungs are well-inflated. No focal consolidation or pulmonary edema. PLEURA:No pleural effusion or pneumothorax. MEDIASTINUM:The cardiomediastinal silhouette appears normal in size and shape. BONES/SOFT TISSUES:No acute osseous injury. ABDOMEN:No free air under the diaphragm. IMPRESSION: No focal pneumonia or pulmonary edema. Signed by: Vidya Ireland MD on 12/13/2019 8:33 AM
[2019-12-13] MEDS ORDERED: KETOROLAC TROMETHAMINE 30 MG/ML VIAL IV STA (08:40)
[2019-12-13] MEDS ORDERED: ENALAPRILAT IV INJ 1.25 MG/ML VIAL IV STA (08:40)
--- NOTE | 2019-12-13 08:58 | Emergency Department Note ---
History of Present Illnes History of Present Illness Chief Complaint: Hypertension History of Present Illness This is a 49 year old male c/o htn 190s systolic and greater than 100 diastolic at home c/o myles and blurred vision states he woke up this morning with a massive myles took something for migraine myles and states some relief c/o photosensitivity denies sensitivity to sound denies cp/sob states he's taking lisinopril 10 mg po qdaily and hctz 25 mg qdaily for htn and has been on both since he had stent placement in [address] nava is his pcp and that he's told pcp about meds not working for htn but pcp has not changed meds states last time he took htn meds was yesterday morning did not take today because he ran out. Historian: Patient Arrival Mode: Car Registered Nurse Cardiac Required: No Onset (how long ago): hour(s) Location: head Quality: ache Radiation: Reports non-radiation Severity: moderate Onset quality: gradual Timing of current episode: intermittent Progression: improving Chronicity: new Context: Denies recent illness Relieving factors: none Exacerbating factors: none Associated symptoms: Reports denies other symptoms; Denies chest pain, Denies cough, Denies fever/chills, Denies nausea/vomiting, Denies shortness of breath, Denies syncope, Denies weakness Treatments prior to arrival: other (OTC "migraine medicine") Past Medical/Family History Physician Review I have reviewed the patient's past medical and family history. Any updates have been documented here. Past Medical History Recent Fever: No Clinical Suspicion of Infectio: No New/Unexplained Change in Ment: No Past Medical History: Hypertension, [place], CAD, Migraines, GERD Past Surgical History: PCI Other Surgery: RT KNEE SURGERY cardiac stents Social History Smoking Cessation: Current every day smoker Counseling Performed: Yes Alcohol Use: Occasional Any Illegal Drug Use: No TB Exposure/Symptoms: No Physically hurt or threatened: No Family History Family history of heart diseas: Yes Other Last Tetanus: UTD Any Pre-Existing Lines (PICC,: No Review of Systems Review of Systems Constitutional: Reports no symptoms EENTM: Reports no symptoms Cardiovascular: Reports no symptoms Respiratory: Reports no symptoms Gastrointestinal: Reports no symptoms Genitourinary: Reports no symptoms Musculoskeletal: Reports no symptoms Integumentary: Reports no symptoms Neurological: Reports as per HPI, Reports headache Psychological: Reports no symptoms Endocrine: Reports no symptoms Hematological/Lymphatic: Reports no symptoms Physical Exam Related Data Allergies: Coded Allergies: bee venom protein (honey bee) (Verified Allergy, Severe, 12/08/19) egg (Verified Allergy, Severe, Anaphylaxis, Throat swelling, 03/27/18) Penicillins (Verified Allergy, Unknown, 01/24/18) methylphenidate HCl (Verified Allergy, Unknown, 01/24/18) Triage Vital Signs Vital Signs Date Time Temp Pulse Resp B/P (MAP) Pulse Ox O2 Delivery O2 Flow Rate FiO2 12/13/19 06:58 97.8 60 18 193/117 97 Room Air Vital signs reviewed: Yes Physical Exam CONSTITUTIONAL Constitutional: Present well-developed, Present well-nourished HENT HENT: Present normocephalic, Present atraumatic, Present oropharynx clear/moist, Present nose normal HENT L/R: Present left ext ear normal, Present right ext ear normal EYES Eyes: Reports PERRL, Reports conjunctivae normal, Reports other (no ocular br uit) NECK Neck: Present ROM normal; Absent carotid bruit PULMONARY Pulmonary: Present effort normal, Present breath sounds normal CARDIOVASCULAR Cardiovascular: Present regular rhythm, Present heart sounds normal, Present capillary refill normal, Present normal rate GASTROINTESTINAL Abdominal: Present soft, Present nontender, Present bowel sounds normal GENITOURINARY Genitourinary: Present exam deferred SKIN Skin: Present warm, Present dry MUSCULOSKELETAL Musculoskeletal: Present ROM normal NEUROLOGICAL Neurological: Present alert, Present oriented x 3, Present no gross motor or sensory deficits; Absent cranial nerve deficit, Absent sensory deficit, Absent abnormal coordination, Absent abnormal gait, Absent weakness PSYCHOLOGICAL Psychological: Present mood/affect normal, Present judgement normal Results Laboratory Result Diagram: 12/13/19 0713 12/13/19 0713 Laboratory Laboratory Tests Test 12/13/19 07:37 12/13/19 07:13 Urine Color Yellow (YELLOW) Urine Clarity Clear (CLEAR) Urine pH 6 (5 - 7) Urine Specific [place] 1.015 (1.010-1.025) Urine Protein Negative (NEGATIVE) Urine Glucose (UA) Negative (NEGATIVE) Urine Ketones Negative (NEGATIVE) Urine Blood Negative (NEGATIVE) Urine Nitrite Negative (NEGATIVE) Urine Bilirubin Negative (NEGATIVE) Urine Urobilinogen 0.2 mg/dL (0.2 - 1) Urine Leukocyte Esterase Negative (NEGATIVE) Urine RBC None /HPF (0-5) Urine WBC 0-5 /HPF (0-5) Urine Epithelial Cells Rare /LPF (NONE) Urine Bacteria Rare /HPF (NONE) Urine Opiates Screen Positive (NEGATIVE) Urine Methadone Screen Negative (NEGATIVE) Urine Barbiturates Screen Negative (NEGATIVE) Urine Phencyclidine Screen Negative (NEGATIVE) Urine Amphetamines Screen Negative (NEGATIVE) Urine Methamphetamines Screen Negative (NEGATIVE) Urine Benzodiazepines Screen Negative (NEGATIVE) Urine Cocaine Screen Negative (NEGATIVE) Urine Cannabinoids Screen Negative (NEGATIVE) White Blood Count 12.76 x10e3/uL (4.8-10.8) Red Blood Count 5.39 x10e6/uL (4.3-5.7) Hemoglobin 16.6 g/dL (14.0-18.0) Hematocrit 48.6 % (38.2-49.6) Mean Corpuscular Volume 90.2 fL (81-99) Mean Corpuscular Hemoglobin 30.8 pg (28-32) Mean Corpuscular Hemoglobin Concent 34.2 g/dL (31-35) Red Cell Distribution Width 13.1 % (11.7-14.4) Platelet Count 363 x10e3/uL (140-360) Neutrophils (%) (Auto) 54.0 % (38.7-80.0) Lymphocytes (%) (Auto) 35.7 % (18.0-39.1) Monocytes (%) (Auto) 5.4 % (4.4-11.3) Eosinophils (%) (Auto) 3.5 % (0.0-6.0) Basophils (%) (Auto) 0.9 % (0.0-1.0) Neutrophils # (Auto) 6.9 (2.1-6.9) Lymphocytes # (Auto) 4.6 (1.0-3.2) Monocytes # (Auto) 0.7 (0.2-0.8) Eosinophils # (Auto) 0.5 (0.0-0.4) Basophils # (Auto) 0.1 (0.0-0.1) Absolute Immature Granulocyte (auto 0.07 x10e3/uL (0-0.1) Prothrombin Time 11.6 seconds (11.9-14.5) Prothromb Time International Ratio 0.81 Activated Partial Thromboplast Time 31.7 seconds (23.8-35.5) Sodium Level 137 mmol/L (136-145) Potassium Level 4.5 mmol/L (3.5-5.1) Chloride Level 103 mmol/L (98-107) Carbon Dioxide Level 23 mmol/L (22-29) Anion Gap 15.5 mmol/L (8-16) Blood Urea Nitrogen 11 mg/dL (7-26) Creatinine 1.19 mg/dL (0.72-1.25) Estimat Glomerular Filtration Rate > 60 ML/MIN (60-) BUN/Creatinine Ratio 9 (6-25) Glucose Level 101 mg/dL (74-118) Calcium Level 9.9 mg/dL (8.4-10.2) Total Bilirubin 0.3 mg/dL (0.2-1.2) Aspartate Amino Transf (AST/SGOT) 16 IU/L (5-34) Alanine Aminotransferase (ALT/SGPT) 27 IU/L (0-55) Alkaline Phosphatase 68 IU/L (40-150) Creatine Kinase 81 IU/L (30-200) Creatine Kinase MB 1.20 ng/mL (0-5.0) Troponin I < 0.001 ng/mL (0-0.300) Total Protein 7.4 g/dL (6.5-8.1) Albumin 4.1 g/dL (3.5-5.0) Globulin 3.3 g/dL (2.3-3.5) Albumin/Globulin Ratio 1.2 (0.8-2.0) Lab results reviewed: Yes Imaging Imaging results reviewed: Yes Impressions EXAMINATION: CHEST SINGLE (PORTABLE) INDICATION: Hypertension, headache COMPARISON: None FINDINGS: LINES/TUBES:None LUNGS:The lungs are well-inflated. No focal consolidation or pulmonary edema. PLEURA:No pleural effusion or pneumothorax. MEDIASTINUM:The cardiomediastinal silhouette appears normal in size and shape. BONES/SOFT TISSUES:No acute osseous injury. ABDOMEN:No free air under the diaphragm. IMPRESSION: No focal pneumonia or pulmonary edema. Signed by: Vidya Ireland MD on 12/13/2019 8:33 AM EXAMINATION: Head CT HISTORY: Headache associated to elevated blood pressure. COMPARISON: Head CT 01/24/2018 TECHNIQUE: Helical axial images of the head were obtained. Reformatted coronal and sagittal images from the axial data. Dose modulation, iterative reconstruction, and/or weight based adjustment of the mA/kV was utilized to reduce the radiation dose to as low as reasonably achievable. Image quality: Motion/streaking artifact limits the evaluation of the skull base and posterior cranial fossa. FINDINGS: Parenchyma: 1. No abnormal densities. 2. No mass or hemorrhage. No CT evidence of acute territorial vascular insult. Extra-axial spaces:No abnormal density. No extra-axial fluid collections Brain volume: Normal for age. Ventricles: No hydrocephalus or displacement. Arteries: No density suggestive of thrombus. Dural sinuses: No abnormal density. Foramen magnum: No mass, Chiari malformation, or basilar invagination. Sella: No obvious mass. Paranasal/mastoid sinuses: Imaged portions unremarkable. Skull/Scalp: No lytic or blastic lesions. No fractures. IMPRESSION: No intracranial abnormalities, particularly no hemorrhage, unchanged compared to head CT of 01/20/2014. Signed by: Dr. Jessica Chambers M.D. on 12/13/2019 8:00 AM Procedures 12 Lead ECG Interpretation ECG Interpretation : ECG: ECG 1 Registered Nurse Cardiac: Interpreted by ED physician Date: Dec 13, 2019 Time: 07:12 Rhythm: sinus rhythm Rate: normal (62) QRS axis: normal ST segments normal: Yes T wave inversion: aVR Clinical Impression: abnormal ECG Additional Comments poor RWP Assessment & Plan Medical Decision Making MDM Patient presents with MYLES and HTN - check for evidence of end-organ damage - cbc, chem, ecg, cardiac enzymes, cxr, ct brain - r/o STEMI/NSTEMI, renal insuff, elec trolyte abnl, cerebral bleed/SDH./epidural. Control BP Reassessment Reassessment CT brain & labs look good, patient improved with Hydralazine and Enalapril, Toradol for MYLES. Patient improved, BP improved. DC home, increase HTN med to Lisinopril 20/HCTZ 25, f/u PCP Dr Nava tomorrow Assessment & Plan Final Impression: (1) Headache (2) HTN (hypertension) Depart Disposition: HOME, SELF-CARE Last Vital Signs Date Time Temp Pulse Resp B/P (MAP) Pulse Ox O2 Delivery O2 Flow Rate FiO2 12/13/19 08:15 55 18 162/113 Room Air 12/13/19 08:00 97 12/13/19 06:58 97.8 Home Meds Active Scripts Clopidogrel Bisulfate* (PLAVIX) 75 Mg Tablet, 75 MG PO DAILY for 30 Days Prov:LILLY NAVA MD 07/21/18 Carvedilol (COREG) 12.5 Mg Tab, 12.5 MG PO BID for 30 Days, TAB Prov:LILLY NAVA MD 07/21/18 Lisinopril (LISINOPRIL) 2.5 Mg Tablet, 2.5 MG PO DAILY for 30 Days Prov:LILLY NAVA MD 03/29/18 Famotidine (FAMOTIDINE) 20 Mg Tab, 20 MG PO Q12H for 30 Days, TAB Prov:LILLY NAVA MD 03/29/18 [Atorvastatin] 40 MG TAB No Conflict Check, 80 MG PO HS for 30 Days Prov:LILLY NAVA MD 03/29/18 Aspirin (ASPIRIN EC) 81 Mg Tablet.dr, 81 MG PO DAILY for 30 Days Prov:LILLY NAVA MD 03/29/18 Reported Medications Amlodipine Besylate (AMLODIPINE BESYLATE) 5 Mg Tablet, 10 MG PO DAILY, #30 TAB 03/28/18 Medications in the ED Hydralazine HCl 10 mg NOW STAT IV Last administered on 12/13/19at 07:41; Admin Dose 10 MG; Start 12/13/19 at 07:12; Stop 12/13/19 at 07:56; Status DC Enalaprilat 0.625 mg NOW STAT IV ; Start 12/13/19 at 08:40; Stop 12/13/19 at 08:41; Status UNV Ketorolac Tromethamine 30 mg ONCE STAT IV ; Start 12/13/19 at 08:40; Stop 12/13/19 at 08:41; Status UNV ROSHAN JORGE MD Dec 13, 2019 08:58
== END 2019-12-13 10:41 | disposition home or self-care (01) ==
LOC: ER 07:24
DX: R51 Headache (principal); I10 Essential (primary) hypertension; R94.31 Abnormal electrocardiogram [ECG] [EKG]; I25.10 Atherosclerotic heart disease of native coronary artery without angina pectoris; K21.9 Gastro-esophageal reflux disease without esophagitis; I25.2 Old myocardial infarction; Z95.5 Presence of coronary angioplasty implant and graft; F17.210 Nicotine dependence, cigarettes, uncomplicated
CPT/HCPCS: 36415; 70450; 71045; 80053; 80307; 81001; 82550; 82553; 84484; 85025; 85610; 85730; 87086; 93005; 99284; J0360; J1885

== ENCOUNTER 2020-08-24 18:05 | Emergency (ER) | payer SELFPAY ==
[~2020-08-24] VITALS: Ht 177.8 cm; Wt 108.9 kg
[2020-08-24] MEDS ORDERED: IBUPROFEN 600 MG TAB PO STA (18:14)
[2020-08-24] MEDS ORDERED: TYLENOL # 31 EA PO (19:41)
== END 2020-08-24 19:50 | disposition home or self-care (01) ==
LOC: ER 18:37
DX: M79.672 Pain in left foot (principal); X50.1XXA Overexertion from prolonged static or awkward postures, initial encounter; Y93.01 Activity, walking, marching and hiking; I10 Essential (primary) hypertension; I25.10 Atherosclerotic heart disease of native coronary artery without angina pectoris; K21.9 Gastro-esophageal reflux disease without esophagitis; I25.2 Old myocardial infarction; Z95.5 Presence of coronary angioplasty implant and graft
CPT/HCPCS: 99283

== ENCOUNTER 2022-02-16 23:31 | Emergency (ER) | payer OTHER ==
[~2022-02-16] VITALS: Ht 177.8 cm; Wt 113.4 kg
[~2022-02-16 23:31] MED LIST changes: +TYLENOL # 31 EA PO
[2022-02-17] MEDS ORDERED: NAPROSYN500 MG PO (01:21)
== END 2022-02-17 01:40 | disposition home or self-care (01) ==
LOC: ER 23:46
DX: M25.461 Effusion, right knee (principal); X50.1XXA Overexertion from prolonged static or awkward postures, initial encounter; Y92.89 Other specified places as the place of occurrence of the external cause; I10 Essential (primary) hypertension; E78.5 Hyperlipidemia, unspecified; K21.9 Gastro-esophageal reflux disease without esophagitis; I25.10 Atherosclerotic heart disease of native coronary artery without angina pectoris; I25.2 Old myocardial infarction; Z95.5 Presence of coronary angioplasty implant and graft
CPT/HCPCS: 99283